=== PATIENT | male | born 1980 | race Caucasian/White ===

== ENCOUNTER 2017-02-06 10:21 | Emergency (ER) | payer OTHER ==
[~2017-02-06] VITALS: Ht 180.3 cm; Wt 58.1 kg
[~2017-02-06 10:21] MED LIST: CLONAZEPAM0.5 MG PO; FOLIC ACID1 MG PO; IMURAN50 MG PO; NORCO 5-325 TA1 EACH PO; PREDNISONE20 MG PO; SULFASALAZINE500 MG PO; ZOFRAN ODT4 MG PO; ZOFRAN ODT4 MG SL; ZOLOFT50 MG PO
[2017-02-06] MEDS ORDERED: REMERON30 MG PO (10:34)
[2017-02-06] MEDS ORDERED: PREDNISONE10 MG PO (10:35)
[2017-02-06] MEDS ORDERED: BENTYL10 MG PO (10:36)
[2017-02-06] MEDS ORDERED: PREDNISONE20 MG PO (12:09)
== END 2017-02-06 12:47 | disposition home or self-care (01) ==
LOC: ED 10:21
DX: K50.90 Crohn's disease, unspecified, without complications (principal); F41.9 Anxiety disorder, unspecified; F32.9 Major depressive disorder, single episode, unspecified; F17.200 Nicotine dependence, unspecified, uncomplicated; Z88.5 Allergy status to narcotic agent
CPT/HCPCS: 80053; 85025; 96374; 96375; 99283; J2405; J2930

== ENCOUNTER 2017-02-20 12:25 | Emergency (ER) | payer OTHER ==
[~2017-02-20] VITALS: Ht 180.3 cm; Wt 58.1 kg
[~2017-02-20 12:25] MED LIST changes: +BENTYL10 MG PO; +PREDNISONE10 MG PO; +REMERON30 MG PO
== END 2017-02-20 20:05 | disposition short-term general hospital (02) ==
LOC: ED 12:25
DX: K50.90 Crohn's disease, unspecified, without complications (principal); F32.9 Major depressive disorder, single episode, unspecified; F41.9 Anxiety disorder, unspecified; F17.200 Nicotine dependence, unspecified, uncomplicated; Z88.5 Allergy status to narcotic agent
CPT/HCPCS: 74177; 80053; 81001; 83690; 85025; 96361; 96374; 96375; 96376; 99285; J1170; J2405; J2920; J2930; J7030; Q9967

== ENCOUNTER 2017-03-14 10:43 | Emergency (ER) | payer OTHER ==
[~2017-03-14] VITALS: Ht 180.3 cm; Wt 63.5 kg
[2017-03-14] MEDS ORDERED: DICYCLOMINE HCL20 MG PO (10:58)
[2017-03-14] MEDS ORDERED: PREDNISONE10 MG PO (10:58)
[2017-03-14] MEDS ORDERED: FOLIC ACID1 MG PO (10:59)
[2017-03-14] MEDS ORDERED: NORCO 5-325 TA1 EACH PO (12:30)
== END 2017-03-14 12:40 | disposition home or self-care (01) ==
LOC: ED 10:43
DX: K50.90 Crohn's disease, unspecified, without complications (principal); F41.9 Anxiety disorder, unspecified; F32.9 Major depressive disorder, single episode, unspecified; F17.200 Nicotine dependence, unspecified, uncomplicated; Z88.5 Allergy status to narcotic agent; Z79.899 Other long term (current) drug therapy; Z90.49 Acquired absence of other specified parts of digestive tract; Z79.52 Long term (current) use of systemic steroids
CPT/HCPCS: 80053; 81001; 85025; 96361; 96374; 96375; 99283; J1170; J2060; J2405; J7030

== ENCOUNTER 2018-10-17 16:16 | Emergency (ER) | payer OTHER ==
[~2018-10-17] VITALS: Ht 180.3 cm; Wt 63.5 kg
--- OUTSIDE RECORDS SUMMARY | ~2018-10-17 | XMS | Clinical Summary ---
Demographics + + + | Address | [address] | | | [place] [address] | + + + | Home Phone | | + + + | Preferred Language | Unknown | + + + | Marital Status | S | + + + | Pentecostalism Affiliation | Unknown | + + + | Race | White | + + + | Ethnic Group | Not or | + + + Author + + + | Author | [facility] | + + + | Organization | [facility] | + + + | Address | [address] | | | [place] [address] | + + + | Phone | Unavailable | + + + Care Team Providers + + + + | Care Research Leader Name | Role | Phone | + + + + Unavailable | Unavailable | + + + + Conditions or Problems +---------+---------+---------+--------+---------+---------+---------+---------+---------+ | Problem | Problem | Onset | Status | Entry | Provide | Comment | Standar | Annotat | | Name | Code | Date | | Date | r | | d | e | | | | | | | | | Descrip | | | | | | | | | | tion | | +---------+---------+---------+--------+---------+---------+---------+---------+---------+ | ABDOMIN | [id number] | | Active | | Subhaji | | Abdomin | | | AL PAIN | 1 | /29 | | /29 | t | | al pain | | | | (SNOMED | | | | Mukherj | | | | | | CT) | | | | ee MD | | | | +---------+---------+---------+--------+---------+---------+---------+---------+---------+ | CROHN'S | [id number] | | Active | | Subhaji | | Crohn's | | | | 6 | /29 | | /29 | t | | | | | DISEASE | (SNOMED | | | | Mukherj | | disease | | | | CT) | | | | ee MD | | | | +---------+---------+---------+--------+---------+---------+---------+---------+---------+ Medications + + + + + + + + | Medication | Instructio | Start Date | Stop Date | Generic | NDC | Provider | | | ns | | | Name | | | + + + + + + + + | SUPREP | mix and | | | NA | [id number] | Subhajit | | BOWEL PREP | drink one | | | SULFATE-K | 1 | Keny | | KIT | bottle at | | | SULFATE-MG | | MD | | 17.5-3.13- | 5pm day | | | SULF | | | | 1.6 | before | | | | | | | GM/177ML | procedure. | | | | | | | SOLN | mix and | | | | | | | | drink 2nd | | | | | | | | bottle 4 | | | | | | | | hours | | | | | | | | before | | | | | | | | check in | | | | | | | | time | | | | | | + + + + + + + + | PREDNISONE | PDN taper: | | | PREDNISONE | [id number] | Subhajit | | 10 MG | [id number] | | | | 5 | Keny | | TABS | days; | | | | | MD | | | [id number] | | | | | | | | days; | | | | | | | | [id number] | | | | | | | | ; 20mg | | | | | | | | daily | | | | | | | | until seen | | | | | | | | at follow | | | | | | | | up | | | | | | + + + + + + + + | MIRALAX | 1 packet | | | POLYETHYLE | [id number] | Alice | | PACK | daily prn | | | NE GLYCOL | 5 | [place] | | | | | | 3350 | | | + + + + + + + + | PREDNISONE | 2 tablets | | | PREDNISONE | [id number] | Alice | | 20 MG | by mouth | | | | 5 | [place] | | TABS | daily | | | | | | + + + + + + + + | DICYCLOMIN | 2 tablets | | | DICYCLOMIN | [id number] | Alice | | E HCL 20 | 3 times a | | | E HCL | 1 | [place] | | MG TABS | day | | | | | | + + + + + + + + | HYDROXYZIN | one tablet | | | HYDROXYZIN | [id number] | Alice | | E PAMOATE | twice | | | E PAMOATE | 1 | [place] | | 50 MG CAPS | daily | | | | | | + + + + + + + + | SERTRALINE | 3 tablets | | | SERTRALINE | [id number] | Alice | | HCL 50 MG | daily | | | HCL | 0 | [place] | | TABS | | | | | | | + + + + + + + + | CIPROFLOXA | one tablet | | | CIPROFLOXA | [id number] | Alice | | AUNDREA HCL | po bid | | | AUNDREA HCL | 1 | [place] | | 500 MG | | | | | | | | TABS | | | | | | | + + + + + + + + | FLAGYL 500 | one tablet | | | METRONIDAZ | [id number] | Alice | | MG TABS | po tid | | | OLE | 1 | [place] | + + + + + + + + Medications Administered No information available. Allergies, Adverse Reactions, Alerts + + + + +--------+ + | Allergy Name | Reaction | Start Date | Severity | Status | Provider | | | Description | | | | | + + + + +--------+ + | DEMRALL | | | Critical | | Laice | | | | | | | [place] | + + + + +--------+ + | MORPHINE | | | Critical | | Alice | | | | | | | [place] | + + + + +--------+ + Results +------+------+-------+------+-------+------+ + | Date | Name | Value | Unit | Range | Flag | Descriptio | | | | | | | | n | +------+------+-------+------+-------+------+ + + + | Office Visit: GI consult | + + + + +----+---+---+---+ + | | CULT MRSA | No | | | | Culture, | | | | | | | | Methicilli | | | | | | | | n | | | | | | | | Resistant | | | | | | | | Staphyloco | | | | | | | | ccus | | | | | | | | aureus | + + +----+---+---+---+ + + + | Lab Report: Basic Metabolic Panel | + + + + +-------+ + +---+ + | | CALCIUM | 7.0 | mg/dL | 8.5-10.1 | L | calcium, | | | | | | | | serum | + + +-------+ + +---+ + | | GFRC | >60 | mL/min/1.7 | 60- | N | Glomerular | | | | | 3m2 | | | | | | | | | | | Filtration | | | | | | | | Rate | | | | | | | | Calculatio | | | | | | | | n | + + +-------+ + +---+ + | | BUN/CREAT | 9.5 % | | 12.0-20.0 | L | urea | | | | | | | | nitrogen/c | | | | | | | | reatinine | | | | | | | | ratio, | | | | | | | | serum | + + +-------+ + +---+ + | | CREATININE | 0.84 | mg/dL | 0.60-1.20 | N | creatinine | | | | | | | | , serum | + + +-------+ + +---+ + | | BUN | 8 | mg/dL | 8-24 | N | urea | | | | | | | | nitrogen, | | | | | | | | blood | + + +-------+ + +---+ + | | GLUCOSE | 87 | mg/dL | 70-99 | N | blood | | | SER | | | | | glucose | + + +-------+ + +---+ + | | ANION GAP | 9 | mmol/L | 6-16 | N | anion gap, | | | | | | | | serum | + + +-------+ + +---+ + | | CO2 | 22 | mmol/L | 21-32 | N | carbon | | | | | | | | dioxide, | | | | | | | | venous | | | | | | | | blood | + + +-------+ + +---+ + | | CHLORIDE | 114 | mmol/L | 98-108 | H | chloride, | | | | | | | | serum | + + +-------+ + +---+ + | | POTASSIUM | 3.5 | mmol/L | 3.5-5.5 | N | potassium, | | | | | | | | serum | + + +-------+ + +---+ + | | SODIUM | 145 | mmol/L | 136-145 | N | sodium, | | | | | | | | serum | + + +-------+ + +---+ + + + | Lab Report: Comprehensive Metabolic Panel | + + + + +--------+ + +---+ + | | SGPT (ALT) | 16 | U/L | 12-78 | N | alanine | | | | | | | | aminotrans | | | | | | | | ferase | | | | | | | | (SGPT), | | | | | | | | serum | + + +--------+ + +---+ + | | SGOT (AST) | 12 | U/L | 12-37 | N | aspartate | | | | | | | | aminotrans | | | | | | | | ferase | | | | | | | | (SGOT), | | | | | | | | serum | + + +--------+ + +---+ + | | ALK PHOS | 78 | U/L | 50-136 | N | alkaline | | | | | | | | phosphatas | | | | | | | | e, serum | + + +--------+ + +---+ + | | BILI TOTAL | 0.6 | mg/dL | 0.1-1.0 | N | bilirubin, | | | | | | | | serum, | | | | | | | | total | + + +--------+ + +---+ + | | A/G RATIO | 0.7 | | 0.8-1.8 | L | albumin/gl | | | | | | | | obulin | | | | | | | | ratio, | | | | | | | | serum | + + +--------+ + +---+ + | | GLOBULIN | 3.4 | g/dL | 2.2-4.0 | N | globulins, | | | TOT | | | | | serum, | | | | | | | | total | + + +--------+ + +---+ + | | ALBUMIN | 2.5 | g/dL | 3.4-5.0 | L | albumin, | | | | | | | | serum | + + +--------+ + +---+ + | | PROTEIN, | 5.9 | g/dL | 6.4-8.2 | L | protein, | | | TOT | | | | | total, | | | | | | | | serum | + + +--------+ + +---+ + | | CALCIUM | 7.5 | mg/dL | 8.5-10.1 | L | calcium, | | | | | | | | serum | + + +--------+ + +---+ + | | GFRC | >60 | mL/min/1.7 | 60- | N | Glomerular | | | | | 3m2 | | | | | | | | | | | Filtration | | | | | | | | Rate | | | | | | | | Calculatio | | | | | | | | n | + + +--------+ + +---+ + | | BUN/CREAT | 18.5 % | | 12.0-20.0 | N | urea | | | | | | | | nitrogen/c | | | | | | | | reatinine | | | | | | | | ratio, | | | | | | | | serum | + + +--------+ + +---+ + | | CREATININE | 0.70 | mg/dL | 0.60-1.20 | N | creatinine | | | | | | | | , serum | + + +--------+ + +---+ + | | BUN | 13 | mg/dL | 8-24 | N | urea | | | | | | | | nitrogen, | | | | | | | | blood | + + +--------+ + +---+ + | | GLUCOSE | 111 | mg/dL | 70-99 | H | blood | | | SER | | | | | glucose | + + +--------+ + +---+ + | | ANION GAP | 6 | mmol/L | 6-16 | N | anion gap, | | | | | | | | serum | + + +--------+ + +---+ + | | CO2 | 25 | mmol/L | 21-32 | N | carbon | | | | | | | | dioxide, | | | | | | | | venous | | | | | | | | blood | + + +--------+ + +---+ + | | CHLORIDE | 110 | mmol/L | 98-108 | H | chloride, | | | | | | | | serum | + + +--------+ + +---+ + | | POTASSIUM | 4.0 | mmol/L | 3.5-5.5 | N | potassium, | | | | | | | | serum | + + +--------+ + +---+ + | | SODIUM | 141 | mmol/L | 136-145 | N | sodium, | | | | | | | | serum | + + +--------+ + +---+ + + + | Lab Report: Lactate (Lactic Acid), Blood | + + + + +-----+--------+---------+---+ + | | LACTATE | 0.7 | mmol/L | 0.4-2.0 | N | lactate, | | | BLD | | | | | blood | + + +-----+--------+---------+---+ + + + | Lab Report: CBC without Diff (Hemogram) | + + + + +------+ + +---+ + | | NRBCS/100W | 0.0 | % | 0.0-0.2 | N | nucleated | | | BC | | | | | red blood | | | | | | | | cells as | | | | | | | | percent of | | | | | | | | blood | | | | | | | | leukocytes | + + +------+ + +---+ + | | MPV | 8.6 | fL | 9.1-12.4 | L | mean | | | | | | | | platelet | | | | | | | | volume | + + +------+ + +---+ + | | PLATELETS | 230 | 10*3/mm3 | 150-400 | N | platelet | | | | | | | | count | + + +------+ + +---+ + | | RDW | 12.6 | % | 11.7-14.2 | N | red blood | | | | | | | | cell | | | | | | | | distributi | | | | | | | | on width | + + +------+ + +---+ + | | RDW-SD | 40.9 | fL | 35.1-46.3 | N | red blood | | | | | | | | cell | | | | | | | | distributi | | | | | | | | on width, | | | | | | | | size | | | | | | | | density | + + +------+ + +---+ + | | MCHC RBC | 33.7 | g/dL | 31.5-36.5 | N | mean | | | | | | | | corpuscula | | | | | | | | r | | | | | | | | hemoglobin | | | | | | | | | | | | | | | | concentrat | | | | | | | | ion, RBC | + + +------+ + +---+ + | | MCH | 29.7 | pg | 26.0-34.0 | N | mean | | | | | | | | corpuscula | | | | | | | | r | | | | | | | | hemoglobin | | | | | | | | , RBC | + + +------+ + +---+ + | | MCV | 88 | fL | 80-100 | N | mean | | | | | | | | corpuscula | | | | | | | | r volume, | | | | | | | | RBC | + + +------+ + +---+ + | | HCT | 37.7 | % | 37.0-53.0 | N | hematocrit | | | | | | | | , blood | + + +------+ + +---+ + | | HGB | 12.7 | g/dL | 13.5-17.5 | L | hemoglobin | | | | | | | | , blood | + + +------+ + +---+ + | | RBC | 4.27 | 10*6/mm3 | 4.30-5.90 | L | erythrocyt | | | | | | | | e (RBC) | | | | | | | | count | + + +------+ + +---+ + | | WBC | 6.30 | 10*3/mm3 | 4.00-11.30 | N | leukocyte | | | | | | | | count, | | | | | | | | blood | + + +------+ + +---+ + Plan of Care + + + + | Type | Date | Detail | + + + + | Appointment | 11:30 AM | Jayson Bustillo MD, [address] | | | | [address] [facility] | | | | [address], [place], [address], | | | | | + + + + | Pending order | | Hepatitis C Antibody Total | + + + + | Pending order | | Calprotectin, Fecal | + + + + | Pending order | | HAV Ab, IgM | + + + + | Pending order | | Quantiferon TB Gold In-Tube | + + + + | Pending order | | Hepatitis B Surface Antigen | | | | (HBSAG) | + + + + | Pending order | | Hepatitis A - total | + + + + | Pending order | | MR Abdomen-WWO Con | + + + + | Pending order | | CBC w/ Auto Diff | + + + + | Pending order | | Hepatitis B Surface | | | | Antibody | + + + + | Pending order | | Hepatitis B core - Igm | | | | antibody | + + + + | Pending order | | HIV 1/2 Ab RFLX to Suppl | | | | Assay | + + + + | Pending order | | Comprehensive Metabolic | | | | Panel | + + + + | Pending order | | MR Moise Con | + + + + | Pending order | | HBc Ab, Total | + + + + | Pending order | | Vitamin D, 25-OH by | | | | LC-MS/MS | + + + + | Patient education | | CROHN%20DISEASE | + + + + Procedures No information available. Vital Signs + + +-------+---------+ + | Date | Name | Value | Unit | Description | + + +-------+---------+ + | | BMI (Body Mass | 21.95 | kg/m2 | Body Mass Index | | | Index) | | | [Ratio] | + + +-------+---------+ + | | BP Diastolic | 60 | mm[Hg] | blood pressure, | | | | | | diastolic | + + +-------+---------+ + | | BP Diastolic | 60 | mm[Hg] | blood pressure, | | | | | | diastolic, | | | | | | second | | | | | | observation | + + +-------+---------+ + | | BP Systolic | 128 | mm[Hg] | blood pressure, | | | | | | systolic, | | | | | | second | | | | | | observation | + + +-------+---------+ + | | BP Systolic | 128 | mm[Hg] | blood pressure, | | | | | | systolic | + + +-------+---------+ + | | Heart Rate | 80 | /min | pulse rate E&M | + + +-------+---------+ + | | Height | 70 | [in_us] | height E&M | + + +-------+---------+ + | | Weight Measured | 152.4 | [lb_av] | weight E&M | + + +-------+---------+ + Social History + + + +-------+ + | Concept | Observation | Observation | Units | Start Date | | Description | Name | Value | | | + + + +-------+ + | Alcohol use | ETOH USE | never | | | + + + +-------+ + | Details of drug | DRUG USE | none | | | | misuse | | | | | | behavior | | | | | + + + +-------+ + | Never smoker | SMOK STATUS | Never smoker | | | + + + +-------+ + | Health-related | HIV RSK EVAL | No | | | | behavior | | | | | + + + +-------+ +"
--- OUTSIDE RECORDS SUMMARY | ~2018-10-17 | XMS | Clinical Summary ---
Demographics + + + | Address | [address] | | | [place] [address] | + + + | Home Phone | | + + + | Preferred Language | Unknown | + + + | Marital Status | S | + + + | Gnosticist Affiliation | Unknown | + + + | Race | White | + + + | Ethnic Group | Not or | + + + Author + + + | Author | [facility] | + + + | Organization | [facility] | + + + | Address | [address] | | | [place] [address] | + + + | Phone | Unavailable | + + + Care Team Providers + + + + | Care Baccarat Dealer Name | Role | Phone | + [...] tion | | +---------+---------+---------+--------+---------+---------+---------+---------+---------+ | ABDOMIN | [id number] | | Active | | Subhaji | | Abdomin | | | AL PAIN | 1 | /29 | | /29 | t | | al pain | | | | (SNOMED | | | | Mukherj | | | | | | CT) | | | | ee MD | | | | +---------+---------+---------+--------+---------+---------+---------+---------+---------+ | CROHN'S | [id number] | | Active | | Subhaji | [...] mix and | | | NA | [id number] | Subhajit | | BOWEL PREP | [...] PDN taper: | | | PREDNISONE | [id number] | Subhajit | | 10 MG | [id number] | | | | 5 | Keny | | TABS | days; | | | | | MD | | | [id number] | | | | | | | | days; | | | | | | | | [id number] | | | | | | | [...] 1 packet | | | POLYETHYLE | [id number] | Alice | | PACK | daily prn | | | NE GLYCOL | 5 | [place] | | | | | | 3350 | | | + + + + + + + + | PREDNISONE | 2 tablets | | | PREDNISONE | [id number] | Alice | | 20 MG | by mouth | | | | 5 | [place] | | TABS | daily | | | | | | + + + + + + + + | DICYCLOMIN | 2 tablets | | | DICYCLOMIN | [id number] | Alice | | E HCL 20 | 3 times a | | | E HCL | 1 | [place] | | MG TABS | day | | | | | | + + + + + + + + | HYDROXYZIN | one tablet | | | HYDROXYZIN | [id number] | Alice | | E PAMOATE | twice | | | E PAMOATE | 1 | [place] | | 50 MG CAPS | daily | | | | | | + + + + + + + + | SERTRALINE | 3 tablets | | | SERTRALINE | [id number] | Alice | | HCL 50 MG | daily | | | HCL | 0 | [place] | | TABS | | | | | | | + + + + + + + + | CIPROFLOXA | one tablet | | | CIPROFLOXA | [id number] | Alice | | AUNDREA HCL | po bid | | | AUNDREA HCL | 1 | [place] | | 500 MG | | | | | | | | TABS | | | | | | | + + + + + + + + | FLAGYL 500 | one tablet | | | METRONIDAZ | [id number] | Alice | | MG TABS | [...] DEMRALL | | | Critical | | Alice [...] [address] | | | | [address] [facility] | | | | [address], [place], [address], | | | | | + + [...] + | Pending order | | MR [place] | + + + + | Pending order | | HBc Ab, Total | + + + + | Pending order | | Vitamin D, 25-OH by | | | | LC-MS/MS | + + + + | Pending order | | MX Dexa Scan-Body | + + + + | Patient [...]
--- OUTSIDE RECORDS SUMMARY | ~2018-10-17 | XMS | Clinical Summary ---
Demographics + + + | Address | [address] | | | [place] [address] | + + + | Home Phone | | + + + | Preferred Language | Unknown | + + + | Marital Status | Single | + + + | Jewish Affiliation | CHR | + + + [...] Team Providers + +------+ + | Care Peoplesoft Hr Developer Name | Role | Phone | + +------+ + | Theresa High NP | PP | | + +------+ + Source Comments DION is fully live on both [facility] and [facility] In[facility] Allergies + + + + + + [...] (Flu) | | | | | vaccination (#1) | 8 | | | + + + + + Results Not on filefrom Last 3 Months Insurance + +--------+ +--------+-------+---------+ | Payer | Benefi | Subscriber | Type | Phone | Address | | | t Plan | ID | | | | | | / | | | | | | | Group | | | | | + +--------+ +--------+-------+---------+ | [employer]ICA[employer] | GLUE MIXER | xxxxxxxx | Medica | | | [...] | Self [birth year] Home: | [address] | | | al/Fam | | 1980 | [phone] | [place] [address] | | | tory | | | [phone] | | + +--------+ +--------+ + +
--- OUTSIDE RECORDS SUMMARY | ~2018-10-17 | XMS ---
Demographics + + + | Address | [address] | | | [place] [address] | + + + | Home Phone | | + + + | Preferred Language | Unknown | + + + | Marital Status | S | + + + | Buddhism Affiliation | Unknown | + + + | Race | White | + + + | Ethnic Group | Not or | + + + Author + + + | Author | [facility] | + + + | Organization | [facility] | + + + | Address | [address] | | | [place] [address] | + + + | Phone | Unavailable | + + + Care Team Providers + + + + | Care Card Runner Name | Role | Phone | + + + + Unavailable | Unavailable | + + + + Reason for Visit + + + | Reason For Visit Description | Start Date | + + + | General Notes | | + + + | | Gastroenterology Initial Visit Note | | | Chief Complaint: Crohn's referring: | | | Grzegorz Current Allergies: Done | | | HISTORY OF PRESENT ILLNESS: Mr Mayen | | | Fortunato is a 38 y o male | | | currently incarcerated for sex offence | | | with past medical history of fistulizing | | | Crohn's disease with prior abdominal | | | surgeries and small bowel resections came | | | to the clinic to establish | | | Gastroenterology care. Patient was | | | admitted to hospital in 07/2017 with | | | abdominal pain and CT concern for fistula. | | | Patient had surgery evaluation and no | | | surgical intervention was required. | | | Gastroenterology was on-call and consult | | | was placed but since no one called in | | | time, pt didn't have Gastroenterology | | | consult. He was subsequently discharged on | | | po prednisone of 40 mg. - Pt reports | | | that he has failed humira before since it | | | didn't work - He also failed remicade as | | | it caused bone marrow suppression - he | | | was on imuran, sulfasalazine, asacol | | | without much benefit - he was last seen | | | GI in [facility] and recommended | | | remicade and pt refused for past 6 months | | | he has been on 40 mg of prednisone. 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 CV: Denies | | | chest pain, palpitations RESPIRATORY: | | | Denies cough or shortness of breath. | | | GASTROINTESTINAL: Denies abdominal pain, | | | denies diarrhea, denies constipation, | | | denies nausea, denies vomiting, denies | | | rectal bleeding URINARY: Denies dysuria, | | | hematuria MSK: denies back pain, denies | | | stiffness ENDOCRINE: Denies heat or cold | | | intolerance HEMATOLOGIC: denies any | | | fatigue, no pallor NEUROLOGIC: Denies | | | fainting, seizures PSYCHIATRIC: Denies | | | depressed mood Medical History crohn | | | disease Surgical History 2 bowel | | | reconstruction 1997, 2007 Family History | | | no family hx of colon cancer Social | | | History single Risk Factors | | | Tobacco Use: Never smoker Alcohol | | | Use:never Drug Use: none Other Risk | | | Factors HX of MRSA: No HIV high risk | | | behavior: No Nurse Intake Height: | | | 70in. Weight: 152.4 lbs. Pulse: 80 | | | BMI: 21.95 Pulse Oximetry: O2 sat. at | | | rest is 98% BP #1: 128/60 Vitals | | | entered by: Alice Monterroso on July | | | 2018 9:32 AM Physical | | | Examination: Blood Pressure: 128/60. | | | Height: 70 inches. Weight: 152.4 pounds. | | | BMI: 21.95 Pulse rate: 80. | | | Constitutional:No acute distress. Normal | | | general appearance. hand-cuffed Eyes: No | | | pallor, no icterus, no redness or | | | discharge ENMT: Oral mucosa moist, no | | | oral ulcers or thrush Cardiovascular: | | | Heart sounds S1 and S2. No other heart | | | sounds or murmur. Carotid bruits not | | | present. Respiratory: Clear to | | | auscultation bilaterally. No wheeze, rubs | | | or rhonchi GI: Soft, nontender, bowel | | | sounds present, no appreciable | | | organomegaly, mid abdominal surgical scar | | | lucia Skin:No rash Neurologic: Nonfocal | | | and grossly intact Psychiatric: Patient | | | alert and oriented to time, place, and | | | person. Hem/Lymph/Immuno: No | | | lymphadenopathy Laboratory: HGB: | | | 12.7 g/dL 08/08/2018 Low HCT: 37.7 % | | | 08/08/2018 Normal MCV: 88 fL | | | 08/08/2018 Normal WBC: 6.30 10*3/mm3 | | | 08/08/2018 Normal Plt: 230 10*3/mm3 | | | 08/08/2018 Normal Albumin: 2.5 g/dL | | | 08/08/2018 Low AST: 12 U/L 08/08/2018 | | | Normal ALT: 16 U/L 08/08/2018 Normal | | | Alk Phos: 78 U/L 08/08/2018 Normal | | | Tot. Bili: 0.6 mg/dL 08/08/2018 Normal | | | Cr: 0.84 mg/dL 08/09/2018 Normal | | | Assessment: 38 y o male | | | currently incarcerated for sex offence | | | with past medical history of fistulizing | | | Crohn's disease with prior abdominal | | | surgeries and small bowel resections came | | | to the clinic to establish | | | Gastroenterology care. Plan: 1. | | | Crohn's disease: - fistulizing, small | | | bowel involvement - failed 2 anti-TNFs | | | for primarey non-responder and bone marrow | | | suppressions - on prednisone 40 gm for | | | past 6 months - asymptomatic now, will | | | taper by 5 mg every 2 weeks and then f/u | | | in clinic while he is on 20 mg daily - | | | labs - quantiferon, hepatitis serologies | | | - needs all vaccinations to uptodate - | | | needs strict PCP f/u - needs colonoscopy | | | - order MR enterography - consider | | | ustekinumab - I discussed with him that | | | in future he might need surgeries as well | | | - no smoking - no NSAIDs ASA:2 | | | Mallampati:II Procedure scheduled: | | | colonoscopy, no MAC Risks and benefits | | | of the procedure and sedation discussed | | | with patient which includes abdominal | | | pain, discomfort, bleeding, nausea, | | | vomiting, tear in the wall of the | | | intestine, infection, missed | | | lesions/polyps/cancer, incomplete | | | procedure, anesthesia complications | | | including cardiopulmonary complications | | | and even . Sometimes a complication | | | may require additional treatment such as | | | surgery, hospitalization, repeat endoscopy | | | and/or blood transfusion. Patient | | | verbalized understanding and agreed to | | | proceed with the procedure indicated. | | | Patient is in agreement with the plan | | | above. Patient was also given contact | | | informations of our office to reach us | | | when needed. Follow-up in 2 months | | | .......................................... | | | .. Meaningful Use Med List | | | (Reconciled): FLAGYL 500 MG ORAL TABLET | | | (METRONIDAZOLE) one tablet po tid; Route: | | | ORAL CIPROFLOXACIN HCL 500 MG ORAL | | | TABLET (CIPROFLOXACIN HCL) one tablet po | | | bid; Route: ORAL SERTRALINE HCL 50 MG | | | ORAL TABLET (SERTRALINE HCL) 3 tablets | | | daily; Route: ORAL HYDROXYZINE PAMOATE 50 | | | MG ORAL CAPSULE (HYDROXYZINE PAMOATE) one | | | tablet twice daily; Route: ORAL | | | DICYCLOMINE HCL 20 MG ORAL TABLET | | | (DICYCLOMINE HCL) 2 tablets 3 times a day; | | | Route: ORAL PREDNISONE 20 MG ORAL TABLET | | | (PREDNISONE) 2 tablets by mouth daily; | | | Route: ORAL MIRALAX ORAL PACKET | | | (POLYETHYLENE GLYCOL 3350) 1 packet daily | | | prn; Route: ORAL PREDNISONE 10 MG ORAL | | | TABLET (PREDNISONE) PDN taper: [id number] | | | days; [id number] days; [id number]; 20mg daily | | | until seen at follow up; Route: ORAL | | | SUPREP BOWEL PREP KIT 17.5-3.13-1.6 | | | GM/177ML ORAL SOLUTION (NA SULFATE-K | | | SULFATE-MG SULF) mix and drink one bottle | | | at 5pm day before procedure. mix and drink | | | 2nd bottle 4 hours before check in time; | | | Route: ORAL Historical | | | Immunizations entered during this visit | | | FLU-UNSPECIFIED Series: Unknown Date | | | Given (Approx.): 05/09/2018 This | | | note was transcribed using [employer] Speech | | | Recognition software. As a result, there | | | may be grammatical and spelling errors | | | that are unintended. Every attempt is made | | | to have correct dictation. If there are | | | any questions or major errors, please | | | contact our office. Process Orders | | | Check Orders Results: Lab - Rad: ABN | | | not required for this insurance. Tests | | | Sent for requisitioning (August 21, 2018 | | | 10:15 AM): 08/21/2018: Lab - Rad -- | | | CBC w/ Auto Diff [CBC AUTO [id number]] (signed) | | | 08/21/2018: Lab - Rad -- | | | Comprehensive Metabolic Panel [CHEM PROF] | | | (signed) 08/21/2018: Lab - Rad -- HAV | | | Ab, IgM [HEP A IGM [id number]] (signed) | | | 08/21/2018: Lab - Rad -- Hepatitis A - | | | total [HEP A TOT 02112] (signed) | | | 08/21/2018: Lab - Rad -- Hepatitis B core | | | - Igm antibody [HEP COR M 11994] (signed) | | | 08/21/2018: Lab - Rad -- HBc Ab, | | | Total [HEP B CORE 26988] (signed) | | | 08/21/2018: Lab - Rad -- Hepatitis B | | | Surface Antibody [HEP B IMMU 30771] | | | (signed) 08/21/2018: Lab - Rad -- | | | Hepatitis B Surface Antigen (HBSAG) [HEP B | | | S AG 06691] (signed) 08/21/2018: Lab | | | - Rad -- Vitamin D, 25-OH by LC-MS/MS | | | [VIT D2+D3 03889] (signed) | | | 08/21/2018: Lab - Rad -- Hepatitis C | | | Antibody Total [HEP C AB 25511] (signed) | | | 08/21/2018: Lab - Rad -- Quantiferon | | | TB Gold In-Tube [QUANT TB 03337] (signed) | | | 08/21/2018: Lab - Rad -- MR | | | Abdomen-WWO Con [[id number]] (signed) | | | 08/21/2018: Lab - Rad -- MR Pelvis-WWO Con | | | [[id number]] (signed) 08/21/2018: Lab - | | | Rad -- Calprotectin, Fecal [STL CALPRO | | | [id number]] (signed) 08/21/2018: Lab - Rad | | | -- HIV 1/2 Ab RFLX to Suppl Assay [HIV AB | | | REF 85967] (signed) | + + + Assessments No information available. Chief Complaint No information available. History of Past Illness crohn disease |"
--- OUTSIDE RECORDS SUMMARY | ~2018-10-17 | XMS | Continuity of Care Document ---
Demographics + + + | Address | [address] | | | [place] [address] | + + + | Home Phone | | + + + | Preferred Language | Unknown | + + + | Marital Status | Unknown | + + + | Alevism Affiliation | Unknown | + + + | Race | Unknown | + + + | Ethnic Group | Unknown | + + + Author + + + | Author | [facility] | + + + | Organization | [facility] | + + + | Address | [address] [facility] | | | [place] [address] | + + + | Phone | | + + + Support + + + + + | Name | Relationship | Address | Phone | + + + + + | Brent Calle MD | Caregiver | [facility] | | | | | [place] [address] | | + + + + + | Ryan Man | Caregiver | [facility] | | | MD | | [facility] | | | | | , [place] [address] | | + + + + + | Ryan Man | Caregiver | [facility] | | | MD | | [facility] | | | | | , [place] [address] | | + + + + + | Yan Tovar DO | Caregiver | [address] | | | | | [facility], [place] | | | | | [address] | | + + + + + | Jayson Bustillo | Caregiver | [facility] | | | MD | | [facility] | | | | | [place] [address] | | + + + + + | BRITANY OCHOA | Caregiver | [address] | | | | | [facility], [place] | | | | | [address] | | + + + + + | TEMITOPE PRESTON | Next Of Kin | [address] [facility] | | | | | [place] [address] | | + + + + + Care Team Providers + + + + | Care Coding Analyst Name | Role | Phone | + + + + | BRITANY OCHOA PCP | Unavailable | | + + + + Insurance Providers + + + + + | Payer Name | Policy Number | Subscriber Name | Relationship | + + + + + | [employer] | [id number] | JASON PRESTON | SELF | + + + + + | BASIC DMAP (STATE | [id number] | JASON PRESTON | SELF | | MEDICAID) | | | | + + + + + Advance Directives + + + + | Directive | Response | Recorded Date/Time | + + + + | Code Status | FULL CODE | 08/08/18 0:09am | + + + + | Status of Advance | Doesn't Have One | 08/08/18 2:54am | | Directive/ | | | + + + + | Information obtained from | Y | 08/08/18 2:54am | | Patient? | | | + + + + | Heddler? | N | 08/08/18 2:54am | + + + + | Directives? | N | 08/08/18 2:54am | + + + + Chief Complaint and Reason for Visit + + + | Reason for Visit | EXACERBATION OF CROHNS DISEASE | + + + Problems Active Medical Problems + + + +--------+ | Problem | Onset Date | Recorded Date | Status | + + + +--------+ | Exacerbation of | Unknown | 08/08/18 | Active | | Crohn's disease | | | | + + + +--------+ | Partial small bowel | Unknown | 08/09/18 | Active | | obstruction | | | | + + + +--------+ | Sepsis | Unknown | 08/09/18 | Active | + + + +--------+ | Leucocytosis | Unknown | 08/09/18 | Active | + + + +--------+ Medications Current Home Medications + +------+-------+-------+ + + +--------+ | Medicati | Dose | Units | Route | Directio | Days/Qty | Instruct | Start | | on | | | | ns | | ions | Date | + +------+-------+-------+ + + +--------+ | Ciproflo | 500 | MG | ORAL | Twice | | TAKE | | | xacin | | | | Each Day | | UNTIL | | | (Cipro) | | | | | | GONE, | | | 500 MG | | | | | | TAKE | | | TAB | | | | | | WITH | | | | | | | | | FOOD | | + +------+-------+-------+ + + +--------+ | Dicyclom | 40 | MG | ORAL | Three | | | | | ine Hcl | | | | Times a | | | | | 20 MG | | | | Day | | | | | TABLET | | | | | | | | + +------+-------+-------+ + + +--------+ | Hydroxyz | 50 | MG | ORAL | Twice | | | | | ine | | | | Each Day | | | | | Pamoate | | | | | | | | | (Vistari | | | | | | | | | l) 50 MG | | | | | | | | | CAP | | | | | | | | + +------+-------+-------+ + + +--------+ | Metronid | 500 | MG | ORAL | Three | | TAKE | | | azole | | | | Times a | | UNTIL | | | (Flagyl) | | | | Day | | GONE, | | | 500 MG | | | | | | TAKE | | | TAB | | | | | | WITH | | | | | | | | | FOOD | | + +------+-------+-------+ + + +--------+ | Polyethy | 1 | PKT | ORAL | Daily as | | | | | sergei | | | | needed | | | | | Glycol | | | | for | | | | | 3350 | | | | CONSTIPA | | | | | (Miralax | | | | TION | | | | | 17 gm) | | | | | | | | | 1 PKT | | | | | | | | | PACKET | | | | | | | | + +------+-------+-------+ + + +--------+ | Predniso | 40 | MG | ORAL | Daily | | | | | ne 20 MG | | | | | | | | | TAB | | | | | | | | + +------+-------+-------+ + + +--------+ | Sertrali | 150 | MG | ORAL | Daily | | | | | ne Hcl | | | | | | | | | (Zoloft) | | | | | | | | | 100 MG | | | | | | | | | TAB | | | | | | | | + +------+-------+-------+ + + +--------+ Social History + + + + | Problem | Response | Recorded Date | + + + + | MENTAL HEALTH PROBLEMS/ | Yes | 08/08/18 | + + + + + + + + + | Query | Response | Start Date | Stop Date | + + + + + | Smoking status/ | Former Smoker | | | + + + + + Hospital Discharge Instructions ===== DISCHARGE PLAN ===== Discharge Date: 08/10/18 Discharged to/ Home Transportation Type/ Automobile/Taxi Call Your Doctor For/ Any Problems or Concerns Worsening Symptoms ===== DIET AND INSTRUCTIONS ===== ===== ACTIVITY ===== ===== WOUND CARE AND TREATMENT ===== Treatments: CONTINUE THE CURRENT MEDICATION REGIMEN PRESCRIBED. ===== PROVIDER FOLLOW-UP APPOINTMENTS ===== Comment: PCP IN IN 2 WEEKS ===== ADDITIONAL FOLLOW-UP ===== Patient Specific Education and D/C Instructions Provided? Y Is patient being discharged on WARFARIN? N Primary or Secondary Diagnosis of CHF? N History of New Onset Stroke Patient? N Stroke Instructions include: ===== VACCINES ===== ===== PRESCRIPTIONS ===== Written prescription provided to patient? Y Valuables Returned/ Y Summary of Care printed/downloaded for patient? N Discard old medication lists at home and update any records. ==== OTHER INSTRUCTIONS ==== Other Discharge Instructions: FOLLOW UP WITH PERFORMANCE REPORTER IN 2 WEEKS CONTINUE THE ANTIBIOTICS FOR 2 WEEKS CONTINUE PREDNISONE 40 MG DAILY FOR A MONTH UNTIL TAPERED DOWN BY GI DOCTOR. RETURN TO ER IF SYMPTOMS WORSEN OR RECUR. From your Provider ==== EQUIPMENT ==== Final Discharge Plan: [employer]ICE OFFICERS ===== DISCHARGE CARE PLAN ===== Problem: CROHN'S Goal: RETURN TO BASELINE Instructions: TAKE MEDS ORDERED, FOLLOW UP WITH PHYSICIANS PRESCRIBED + (/;Nurse/Nurse) Family/Guardian notified of DC date/time/ Y Plan of Care + + + | Discharge Date | 08/10/18 | + + + | Disposition | HOME | + + + | Prescriptions | See Medications Section | + + + | Referrals | NO PCP (FAMILY PRACTICE) - Within two | | | weeksReason(s) for | | | Referral:Notes:ESTABLISH PCP AND FOLLOW UP | | | IN NEXT TWO WEEKSGI (GASTROENTEROLOGY) - | | | Appt-Next Available DateReason(s) for | | | Referral:Notes:FOLLOW UP WITH GI DOC | | | ESTABLISHED WITH FACILITY | | |GI (GASTROENTEROLOGY) - Appt-Next Available Date | | | | | |Reason(s) for Referral: | | |Notes: | | |FOLLOW UP WITH GI DOC ESTABLISHED WITH | | |FACILITY | + + + | Care Plan and Goals | See Discharge Instructions section | + + + Functional Status No functional status results. Allergies, Adverse Reactions, Alerts + +---------+ + +--------+ + | Allergen | Type | Severity | Reaction | Status | Last Updated | + +---------+ + +--------+ + | morphine | Allergy | Unknown | | Active | 08/07/18 | + +---------+ + +--------+ + | meperidine | Allergy | Unknown | | Active | 08/07/18 | + +---------+ + +--------+ + Immunizations + + + + | Name | Date Given | Type | + + + + | Influenza, Injectable, | | Administered | | Quadrivalent, Preservative | | | + + + + Vital Signs + + + + | Vital Reading | Collection Date/Time | Result | + + + + | Blood Pressure | 08/10/18 7:22am | 101/71 | + + + + | Blood Pressure Source | 08/10/18 7:22am | Left Arm | + + + + | Temperature | 08/10/18 7:22am | 97.7 F | + + + + | Temperature Source | 08/10/18 7:22am | Temporal | + + + + | Respiratory Rate | 08/10/18 7:22am | 16 | + + + + | Pulse Rate | 08/10/18 7:22am | 94 | + + + + | Pulse Location | 08/10/18 4:39am | SpO2 | + + + + | Bedside Pulse Oximetry | 08/10/18 7:22am | 98 | + + + + | Height | 19 5:29am | 6 ft 0.01 in | + + + + | Height | 1819 5:29am | 182.9 cm | + + + + | Weight | 19 5:29am | 153 lb | + + + + | Weight | 08/10/18 5:29am | 69.5 kg | + + + + | Body Mass Index | 08/10/18 5:29am | 20.8 kg/m2 | + + + + Results Laboratory Results + + + +-------+ + + + + | Test | Result | Units | Flags | Referenc | Collecti | Result | Comments | | Name | | | | e | on | Date/Sigifredo | | | | | | | | Date/Sigifredo | e | | | | | | | | e | | | + + + +-------+ + + + + | Sodium | 145 | mmol/L | | 136-145 | 08/09/18 | 08/09/18 | | | Level | | | | | 4:44am | 5:55am | | + + + +-------+ + + + + | Potassiu | 3.5 | mmol/L | | 3.5-5.5 | 08/09/18 | 08/09/18 | | | m Level | | | | | 4:44am | 5:55am | | + + + +-------+ + + + + | Chloride | 114 | mmol/L | H | 98-108 | 08/09/18 | 08/09/18 | | | Level | | | | | 4:44am | 5:55am | | + + + +-------+ + + + + | Carbon | 22 | mmol/L | | 21-32 | 08/09/18 | 08/09/18 | | | Dioxide | | | | | 4:44am | 5:55am | | | Level | | | | | | | | + + + +-------+ + + + + | Anion | 9 | mmol/L | | 6-16 | 08/09/18 | 08/09/18 | | | Gap | | | | | 4:44am | 5:55am | | + + + +-------+ + + + + | Glucose | 87 | mg/dL | | 70-99 | 08/09/18 | 08/09/18 | | | Level | | | | | 4:44am | 5:55am | | + + + +-------+ + + + + | Blood | 8 | mg/dL | | 8-24 | 08/09/18 | 08/09/18 | | | Urea | | | | | 4:44am | 5:55am | | | Nitrogen | | | | | | | | + + + +-------+ + + + + | Creatini | 0.84 | mg/dL | | 0.60-1.2 | 08/09/18 | 08/09/18 | | | ne | | | | 0 | 4:44am | 5:55am | | + + + +-------+ + + + + | BUN/Crea | 9.5 | % | L | 12.0-20. | 08/09/18 | 08/09/18 | | | tinine | | | | 0 | 4:44am | 5:55am | | | Ratio | | | | | | | | + + + +-------+ + + + + | Glomerul | >60 | | | 60- | 08/09/18 | 08/09/18 | Non-Afri | | ar | | | | | 4:44am | 5:55am | can | | Filtrati | | | | | | | [place] | | on Rate | | | | | | | GFR | | Calc | | | | | | | CalcFor | | | | | | | | | | | | | | | | | | [place] | | | | | | | | | s, | | | | | | | | | multiply | | | | | | | | | the | | | | | | | | | calculat | | | | | | | | | ed GFR | | | | | | | | | by | | | | | | | | | 1.21Refe | | | | | | | | | rence | | | | | | | | | Range: | | | | | | | | | Above 60 | | | | | | | | | | | | | | | | | | mL/min/1 | | | | | | | | | .73m^2 | + + + +-------+ + + + + | Calcium | 7.0 | mg/dL | L | 8.5-10.1 | 08/09/18 | 08/09/18 | | | Level | | | | | 4:44am | 5:55am | | + + + +-------+ + + + + | Campylob | Not | | | NOT | 08/08/18 | 08/08/18 | | | acter | Detected | | | DETECT | 8:29pm | 10:14pm | | | (PCR)(LA | | | | | | | | | B) | | | | | | | | + + + +-------+ + + + + | Clostrid | Not | | | NOT | 08/08/18 | 08/08/18 | | | ium | Detected | | | DETECT | 8:29pm | 10:14pm | | | difficil | | | | | | | | | e | | | | | | | | | (PCR)(LA | | | | | | | | | B) | | | | | | | | + + + +-------+ + + + + | Stool | Not | | | NOT | 08/08/18 | 08/08/18 | | | Plesiomo | Detected | | | DETECT | 8:29pm | 10:14pm | | | ousmane | | | | | | | | | shigello | | | | | | | | | ides PCR | | | | | | | | + + + +-------+ + + + + | Stool | Not | | | NOT | 08/08/18 | 08/08/18 | | | Salmonel | Detected | | | DETECT | 8:29pm | 10:14pm | | | la PCR | | | | | | | | + + + +-------+ + + + + | Stool | Not | | | NOT | 08/08/18 | 08/08/18 | | | Yersinia | Detected | | | DETECT | 8:29pm | 10:14pm | | | | | | | | | | | | enteroco | | | | | | | | | litica | | | | | | | | | (PCR) | | | | | | | | + + + +-------+ + + + + | Vibrio | Not | | | NOT | 08/08/18 | 08/08/18 | | | species | Detected | | | DETECT | 8:29pm | 10:14pm | | | DNA/RNA | | | | | | | | | (PCR) | | | | | | | | + + + +-------+ + + + + | Stool | Not | | | NOT | 08/08/18 | 08/08/18 | | | Vibrio | Detected | | | DETECT | 8:29pm | 10:14pm | | | cholerae | | | | | | | | | (PCR) | | | | | | | | + + + +-------+ + + + + | Stool | Not | | | NOT | 08/08/18 | 08/08/18 | | | Enteroag | Detected | | | DETECT | 8:29pm | 10:14pm | | | gregativ | | | | | | | | | e E. | | | | | | | | | coli PCR | | | | | | | | + + + +-------+ + + + + | Stool | Not | | | NOT | 08/08/18 | 08/08/18 | | | Enteroto | Detected | | | DETECT | 8:29pm | 10:14pm | | | xigenic | | | | | | | | | Ecoli | | | | | | | | | PCR | | | | | | | | + + + +-------+ + + + + | Stool | Not | | | NOT | 08/08/18 | 08/08/18 | | | Enteropa | Detected | | | DETECT | 8:29pm | 10:14pm | | | thogenic | | | | | | | | | E. coli | | | | | | | | | (PCR | | | | | | | | + + + +-------+ + + + + | Stool E. | Not | | | NOT | 08/08/18 | 08/08/18 | | | coli | Detected | | | DETECT | 8:29pm | 10:14pm | | | Shiga | | | | | | | | | Toxins | | | | | | | | | (PCR) | | | | | | | | + + + +-------+ + + + + | Stool E | Not | | | NOT | 08/08/18 | 08/08/18 | | | coli | Detected | | | DETECT | 8:29pm | 10:14pm | | | O157 PCR | | | | | | | | + + + +-------+ + + + + | Stool | Not | | | NOT | 08/08/18 | 08/08/18 | | | Shigella | Detected | | | DETECT | 8:29pm | 10:14pm | | | /EIEC | | | | | | | | | (PCR) | | | | | | | | + + + +-------+ + + + + | Stool | Not | | | NOT | 08/08/18 | 08/08/18 | | | Cryptosp | Detected | | | DETECT | 8:29pm | 10:14pm | | | oridium | | | | | | | | | PCR | | | | | | | | + + + +-------+ + + + + | Stool | Not | | | NOT | 08/08/18 | 08/08/18 | | | Cyclospo | Detected | | | DETECT | 8:29pm | 10:14pm | | | ra | | | | | | | | | cayetane | | | | | | | | | nsis | | | | | | | | | (PCR) | | | | | | | | + + + +-------+ + + + + | Stool | Not | | | NOT | 08/08/18 | 08/08/18 | | | Entamoeb | Detected | | | DETECT | 8:29pm | 10:14pm | | | a | | | | | | | | | histolyt | | | | | | | | | ica | | | | | | | | | (PCR) | | | | | | | | + + + +-------+ + + + + | Stool | Not | | | NOT | 08/08/18 | 08/08/18 | | | Giardia | Detected | | | DETECT | 8:29pm | 10:14pm | | | Lamblia | | | | | | | | | PCR | | | | | | | | + + + +-------+ + + + + | Stool | Not | | | NOT | 08/08/18 | 08/08/18 | | | Adenovir | Detected | | | DETECT | 8:29pm | 10:14pm | | | us F | | | | | | | | | 40/41 | | | | | | | | | (PCR) | | | | | | | | + + + +-------+ + + + + | Stool | Not | | | NOT | 08/08/18 | 08/08/18 | | | Astrovir | Detected | | | DETECT | 8:29pm | 10:14pm | | | us (PCR) | | | | | | | | + + + +-------+ + + + + | Stool | Not | | | NOT | 08/08/18 | 08/08/18 | | | Noroviru | Detected | | | DETECT | 8:29pm | 10:14pm | | | s GI/GII | | | | | | | | | PCR | | | | | | | | + + + +-------+ + + + + | Stool | Not | | | NOT | 08/08/18 | 08/08/18 | | | Rotaviru | Detected | | | DETECT | 8:29pm | 10:14pm | | | s A PCR | | | | | | | | + + + +-------+ + + + + | Stool | Not | | | NOT | 08/08/18 | 08/08/18 | | | Sapoviru | Detected | | | DETECT | 8:29pm | 10:14pm | | | s (PCR) | | | | | | | | + + + +-------+ + + + + | White | 6.30 | K/mm3 | | 4.00-11. | 08/08/18 | 08/08/18 | | | Blood | | | | 30 | 4:48am | 5:07am | | | Count | | | | | | | | + + + +-------+ + + + + | Red | 4.27 | M/mm3 | L | 4.30-5.9 | 08/08/18 | 08/08/18 | | | Blood | | | | 0 | 4:48am | 5:07am | | | Count | | | | | | | | + + + +-------+ + + + + | Hemoglob | 12.7 | g/dL | L | 13.5-17. | 08/08/18 | 08/08/18 | | | in | | | | 5 | 4:48am | 5:07am | | + + + +-------+ + + + + | Hematocr | 37.7 | % | | 37.0-53. | 08/08/18 | 08/08/18 | | | it | | | | 0 | 4:48am | 5:07am | | + + + +-------+ + + + + | Mean | 88 | fL | | 80-100 | 08/08/18 | 08/08/18 | | | Corpuscu | | | | | 4:48am | 5:07am | | | lar | | | | | | | | | Volume | | | | | | | | + + + +-------+ + + + + | Mean | 29.7 | pg | | 26.0-34. | 08/08/18 | 08/08/18 | | | Corpuscu | | | | 0 | 4:48am | 5:07am | | | lar | | | | | | | | | Hemoglob | | | | | | | | | in | | | | | | | | + + + +-------+ + + + + | Mean | 33.7 | g/dL | | 31.5-36. | 08/08/18 | 08/08/18 | | | Corpuscu | | | | 5 | 4:48am | 5:07am | | | lar | | | | | | | | | Hemoglob | | | | | | | | | in | | | | | | | | | Concent | | | | | | | | + + + +-------+ + + + + | RDW | 40.9 | fL | | 35.1-46. | 08/08/18 | 08/08/18 | | | Standard | | | | 3 | 4:48am | 5:07am | | | | | | | | | | | | Deviatio | | | | | | | | | n | | | | | | | | + + + +-------+ + + + + | RDW | 12.6 | % | | 11.7-14. | 08/08/18 | 08/08/18 | | | Coeffici | | | | 2 | 4:48am | 5:07am | | | ent of | | | | | | | | | Variatio | | | | | | | | | n | | | | | | | | + + + +-------+ + + + + | Platelet | 230 | K/mm3 | | 150-400 | 08/08/18 | 08/08/18 | | | Count | | | | | 4:48am | 5:07am | | + + + +-------+ + + + + | Mean | 8.6 | fL | L | 9.1-12.4 | 08/08/18 | 08/08/18 | | | Platelet | | | | | 4:48am | 5:07am | | | Volume | | | | | | | | + + + +-------+ + + + + | Nucleate | 0.0 | /100 WBC | | 0.0-0.2 | 08/08/18 | 08/08/18 | | | d Red | | | | | 4:48am | 5:07am | | | Blood | | | | | | | | | Cells % | | | | | | | | + + + +-------+ + + + + | Nucleate | 0.00 | K/mm3 | | 0.00-0.0 | 08/08/18 | 08/08/18 | | | d RBC | | | | 2 | 4:48am | 5:07am | | | Absolute | | | | | | | | | Count | | | | | | | | | (auto) | | | | | | | | + + + +-------+ + + + + | Total | 5.9 | g/dL | L | 6.4-8.2 | 08/08/18 | 08/08/18 | | | Protein | | | | | 4:48am | 5:35am | | + + + +-------+ + + + + | Albumin | 2.5 | g/dL | L | 3.4-5.0 | 08/08/18 | 08/08/18 | | | | | | | | 4:48am | 5:35am | | + + + +-------+ + + + + | Globulin | 3.4 | g/dL | | 2.2-4.0 | 08/08/18 | 08/08/18 | | | | | | | | 4:48am | 5:35am | | + + + +-------+ + + + + | Albumin/ | 0.7 | | L | 0.8-1.8 | 08/08/18 | 08/08/18 | | | Globulin | | | | | 4:48am | 5:35am | | | Ratio | | | | | | | | + + + +-------+ + + + + | Total | 0.6 | mg/dL | | 0.1-1.0 | 08/08/18 | 08/08/18 | | | Bilirubi | | | | | 4:48am | 5:35am | | | n | | | | | | | | + + + +-------+ + + + + | Alkaline | 78 | U/L | | 50-136 | 08/08/18 | 08/08/18 | | | | | | | | 4:48am | 5:35am | | | Phosphat | | | | | | | | | ase | | | | | | | | + + + +-------+ + + + + | Aspartat | 12 | U/L | | 12-37 | 08/08/18 | 08/08/18 | | | e Amino | | | | | 4:48am | 5:35am | | | Transf | | | | | | | | | (AST/SGO | | | | | | | | | T) | | | | | | | | + + + +-------+ + + + + | Alanine | 16 | U/L | | 12-78 | 08/08/18 | 08/08/18 | | | Aminotra | | | | | 4:48am | 5:35am | | | nsferase | | | | | | | | | | | | | | | | | | (ALT/SGP | | | | | | | | | T) | | | | | | | | + + + +-------+ + + + + | Lactic | 0.7 | mmol/L | | 0.4-2.0 | 08/08/18 | 08/08/18 | | | Acid | | | | | 0:30am | 0:59am | | | Level | | | | | | | | + + + +-------+ + + + + Date of Admission: 08/08/18 Date of Discharge: Report: DISCHARGE SUMMARY -- PROBLEMS/PROCEDURES -- ADMISSION DATE: 08/08/18 ADMITTING DIAGNOSES: - Exacerbation of Crohn's disease - Leucocytosis - Partial small bowel obstruction - Sepsis DISCHARGE DATE: 08/10/18 DISCHARGE DIAGNOSES: - Partial small bowel obstruction - Exacerbation of Crohn's disease - Leucocytosis - Sepsis APPROXIMATE TIME SPENT (DIRECT PATIENT CARE): 25 min -- HOSPITAL COURSE -- HOSPITAL COURSE: This 38-year-old gentleman who was brought in to the hospital with concerns partial small bowel obstruction and Crohn's disease flare up. He had leukocytosis and lactic acidosis on presentation and was put on IV fluids. NG tube was placed as he was vomiting. Patient did well with supportive measures and responded very quickly. By the next morning he was passing flatus and started having bowel movements. NG tube was removed and the diet was gradually advanced to a liquid diet which he tolerated well. case was discussed with gastroenterology from [place] as we did not have graphic illustrator available in house. Was continued on Solu-Medrol 60 mg IV daily and antibiotic coverage with ceftriaxone and Flagyl. He was initially on Levaquin and Flagyl but had some redness with Levaquin so was switched to ceftriaxone. On the second day, patient's diet was advanced to regular diet and he was put on oral antibiotic coverage with ciprofloxacin and Flagyl. He tolerated this well, he had no pain and was roaming in the hallways comfortably. Patient is being discharged home on oral antibiotics for 2 weeks and prednisone 40 mg daily for a month. He has been advised to follow up with gastroenterology as soon as possible within 2 weeks. Surgery was also consulted during this admission but no surgical intervention was required. -- EXAM -- -EXAM- GENERAL: Well developed, well nourished, in no apparent distress HEAD: Normocephalic, atraumatic EYES: PERRL, EOM intact, conjunctiva and sclera clear, without nystagmus, lids normal EARS: TM's intact and clear, normal canals, grossly normal hearing NOSE: No deformity, no discharge, no inflammation, no lesions MOUTH: Oropharynx without deformities or lesions, normal mucosa. CHEST WALL: Grossly normal appearance LUNGS: Clear bilaterally with normal respiratory effort. HEART: Regular rate and rhythm, normal S1, S2, no murmurs, no rubs, no gallops, no clicks. ABDOMEN: Soft, no peritoneal signs. EXTREMITIES: No clubbing, no cyanosis, no edema SKIN: Intact without significant lesions, or rashes. PSYCH: Alert and oriented to time, person, place. Normal mood and affect, intact judgment and insight. -- DISCHARGE MEDICATIONS -- ALLERGIES: meperidine (Unknown - Allergy) morphine (Unknown - Allergy) DISCHARGE MEDICATIONS: metronidazole tab (Flagyl) 500 MG PO TID, Disp: 2 weeks , Refills: 0 ciprofloxacin tab (Cipro) 500 MG PO BID, Disp: 2 weeks , Refills: 0 sertraline tab (Zoloft) 150 MG PO DAILY hydroxyzine pamoate (Vistaril capsule) 50 MG PO BID dicyclomine tab (Bentyl) 40 MG PO TID prednisone tab (Deltasone) 40 MG PO Daily, Disp: 30 days , Refills: 0 polyethylene glycol packet (Miralax 17 gram unit dose) 1 PKT PO Daily PRN constipation, Disp: 30 , Refills: 0 -- FOLLOW UP -- DISCHARGE CONDITION: Good RECOMMENDATIONS AND DISCHARGE INSTRUCTIONS: - follow up with pcp. - Return to ER if symptoms worsen. - Medication compliance. - follow up with gastroenterology within 2 weeks. 08/10/18 1412 <Electronically signed by Chadd Page MD in [place]> Procedures No Known History of Procedures. Encounters + + + + + + | Encounter | Location | Arrival/Admit | Discharge/Depar | Attending | | | | Date | t Date | Provider | + + + + + + | Discharged | [facility] | 08/07/18 | 08/10/18 3:27pm | [place], | | Inpatient | [facility] | 10:04pm | | Ryan Frey MD | + + + + + +"
--- OUTSIDE RECORDS SUMMARY | ~2018-10-17 | XMS | Clinical Summary ---
Demographics + + + | Address | [address] | | | [place] [address] | + + + | Home Phone | | + + + | Preferred Language | Unknown | + + + | Marital Status | S | + + + | Spiritism Affiliation | Unknown | + + + | Race | White | + + + | Ethnic Group | Not or | + + + Author + + + | Author | [facility] | + + + | Organization | [facility] | + + + | Address | [address] | | | [place] [address] | + + + | Phone | Unavailable | + + + Care Team Providers + + + + | Care Reception Interviewer Name | Role | Phone | + [...] tion | | +---------+---------+---------+--------+---------+---------+---------+---------+---------+ | ABDOMIN | [id number] | | Active | | Subhaji | | Abdomin | | | AL PAIN | 1 | /29 | | /29 | t | | al pain | | | | (SNOMED | | | | Mukherj | | | | | | CT) | | | | ee MD | | | | +---------+---------+---------+--------+---------+---------+---------+---------+---------+ | CROHN'S | [id number] | | Active | | Subhaji | [...] mix and | | | NA | [id number] | Subhajit | | BOWEL PREP | [...] PDN taper: | | | PREDNISONE | [id number] | Subhajit | | 10 MG | [id number] | | | | 5 | Keny | | TABS | days; | | | | | MD | | | [id number] | | | | | | | | days; | | | | | | | | [id number] | | | | | | | [...] 1 packet | | | POLYETHYLE | [id number] | Alice | | PACK | daily prn | | | NE GLYCOL | 5 | [place] | | | | | | 3350 | | | + + + + + + + + | PREDNISONE | 2 tablets | | | PREDNISONE | [id number] | Ailce | | 20 MG | by mouth | | | | 5 | [place] | | TABS | daily | | | | | | + + + + + + + + | DICYCLOMIN | 2 tablets | | | DICYCLOMIN | [id number] | Alice | | E HCL 20 | 3 times a | | | E HCL | 1 | [place] | | MG TABS | day | | | | | | + + + + + + + + | HYDROXYZIN | one tablet | | | HYDROXYZIN | [id number] | Alice | | E PAMOATE | twice | | | E PAMOATE | 1 | [place] | | 50 MG CAPS | daily | | | | | | + + + + + + + + | SERTRALINE | 3 tablets | | | SERTRALINE | [id number] | Alice | | HCL 50 MG | daily | | | HCL | 0 | [place] | | TABS | | | | | | | + + + + + + + + | CIPROFLOXA | one tablet | | | CIPROFLOXA | [id number] | Alice | | AUNDREA HCL | po bid | | | AUNDREA HCL | 1 | [place] | | 500 MG | | | | | | | | TABS | | | | | | | + + + + + + + + | FLAGYL 500 | one tablet | | | METRONIDAZ | [id number] | Alice | | MG TABS | [...] [address] | | | | [address] [facility] | | | | [address], [place], [address], | | | | | + + [...]
--- OUTSIDE RECORDS SUMMARY | ~2018-10-17 | XMS | Clinical Summary ---
Demographics + + + | Address | [address] | | | [place] [address] | + + + | Home Phone | | + + + | Preferred Language | Unknown | + + + | Marital Status | S | + + + | Sabianism Affiliation | Unknown | + + + | Race | White | + + + | Ethnic Group | Not or | + + + Author + + + | Author | [facility] | + + + | Organization | [facility] | + + + | Address | [address] | | | [place] [address] | + + + | Phone | Unavailable | + + + Care Team Providers + + + + | Care Meat Team Member Name | Role | Phone | + [...] tion | | +---------+---------+---------+--------+---------+---------+---------+---------+---------+ | ABDOMIN | [id number] | | Active | | Subhaji | | Abdomin | | | AL PAIN | 1 | /29 | | /29 | t | | al pain | | | | (SNOMED | | | | Mukherj | | | | | | CT) | | | | ee MD | | | | +---------+---------+---------+--------+---------+---------+---------+---------+---------+ | CROHN'S | [id number] | | Active | | Subhaji | [...] mix and | | | NA | [id number] | Subhajit | | BOWEL PREP | [...] PDN taper: | | | PREDNISONE | [id number] | Subhajit | | 10 MG | [id number] | | | | 5 | Keny | | TABS | days; | | | | | MD | | | [id number] | | | | | | | | days; | | | | | | | | [id number] | | | | | | | [...] 1 packet | | | POLYETHYLE | [id number] | Alice | | PACK | daily prn | | | NE GLYCOL | 5 | [place] | | | | | | 3350 | | | + + + + + + + + | PREDNISONE | 2 tablets | | | PREDNISONE | [id number] | Alice | | 20 MG | by mouth | | | | 5 | [place] | | TABS | daily | | | | | | + + + + + + + + | DICYCLOMIN | 2 tablets | | | DICYCLOMIN | [id number] | Alice | | E HCL 20 | 3 times a | | | E HCL | 1 | [place] | | MG TABS | day | | | | | | + + + + + + + + | HYDROXYZIN | one tablet | | | HYDROXYZIN | [id number] | Alice | | E PAMOATE | twice | | | E PAMOATE | 1 | [place] | | 50 MG CAPS | daily | | | | | | + + + + + + + + | SERTRALINE | 3 tablets | | | SERTRALINE | 8555744864 | Alice | | HCL 50 MG | daily | | | HCL | 0 | [place] | | TABS | | | | | | | + + + + + + + + | CIPROFLOXA | one tablet | | | CIPROFLOXA | [id number] | Alice | | AUNDREA HCL | po bid | | | AUNDREA HCL | 1 | [place] | | 500 MG | | | | | | | | TABS | | | | | | | + + + + + + + + | FLAGYL 500 | one tablet | | | METRONIDAZ | [id number] | Alice | | MG TABS | [...] [address] | | | | [address] [facility] | | | | [address], [place], [address], | | | | | + + [...]
--- OUTSIDE RECORDS SUMMARY | ~2018-10-17 | XMS | Clinical Summary ---
Demographics + + + | Address | [address] | | | [place] [address] | + + + | Home Phone | | + + + | Preferred Language | Unknown | + + + | Marital Status | S | + + + | Alevism Affiliation | Unknown | + + + | Race | White | + + + | Ethnic Group | Not or | + + + Author + + + | Author | [facility] | + + + | Organization | [facility] | + + + | Address | [address] | | | [place] [address] | + + + | Phone | Unavailable | + + + Care Team Providers + + + + | Care Clinic Coordinator Name | Role | Phone | + [...] tion | | +---------+---------+---------+--------+---------+---------+---------+---------+---------+ | ABDOMIN | [id number] | | Active | | Subhaji | | Abdomin | | | AL PAIN | 1 | /29 | | /29 | t | | al pain | | | | (SNOMED | | | | Mukherj | | | | | | CT) | | | | ee MD | | | | +---------+---------+---------+--------+---------+---------+---------+---------+---------+ | CROHN'S | 5499248 | | Active | | Subhaji | [...] mix and | | | NA | [id number] | Subhajit | | BOWEL PREP | [...] PDN taper: | | | PREDNISONE | [id number] | Subhajit | | 10 MG | [id number] | | | | 5 | Keny | | TABS | days; | | | | | MD | | | [id number] | | | | | | | | days; | | | | | | | | [id number] | | | | | | | [...] 1 packet | | | POLYETHYLE | [id number] | Alice | | PACK | daily prn | | | NE GLYCOL | 5 | [place] | | | | | | 3350 | | | + + + + + + + + | PREDNISONE | 2 tablets | | | PREDNISONE | [id number] | Alice | | 20 MG | by mouth | | | | 5 | [place] | | TABS | daily | | | | | | + + + + + + + + | DICYCLOMIN | 2 tablets | | | DICYCLOMIN | [id number] | Alice | | E HCL 20 | 3 times a | | | E HCL | 1 | [place] | | MG TABS | day | | | | | | + + + + + + + + | HYDROXYZIN | one tablet | | | HYDROXYZIN | [id number] | Alice | | E PAMOATE | twice | | | E PAMOATE | 1 | [place] | | 50 MG CAPS | daily | | | | | | + + + + + + + + | SERTRALINE | 3 tablets | | | SERTRALINE | [id number] | Alice | | HCL 50 MG | daily | | | HCL | 0 | [place] | | TABS | | | | | | | + + + + + + + + | CIPROFLOXA | one tablet | | | CIPROFLOXA | [id number] | Alice | | AUNDREA HCL | po bid | | | AUNDREA HCL | 1 | [place] | | 500 MG | | | | | | | | TABS | | | | | | | + + + + + + + + | FLAGYL 500 | one tablet | | | METRONIDAZ | [id number] | Alice | | MG TABS | [...] [address] | | | | [address] [facility] | | | | [address], [place], [address], | | | | | + + [...]
--- OUTSIDE RECORDS SUMMARY | ~2018-10-17 | XMS ---
Demographics + + + | Address | [address] | | | [place] [address] | + + + | Home Phone | | + + + | Preferred Language | Unknown | + + + | Marital Status | S | + + + | Oriental Orthodox Affiliation | Unknown | + + + | Race | White | + + + | Ethnic Group | Not or | + + + Author + + + | Author | [facility] | + + + | Organization | [facility] | + + + | Address | [address] | | | [place] [address] | + + + | Phone | Unavailable | + + + Care Team Providers + + + + | Care Customer Care Consultant Name | Role | Phone | + [...] last seen | | | GI in [facility] and recommended | | | remicade and [...] | | | TABLET (PREDNISONE) PDN taper: 10yrk63 | | | days; 66vcc54 days; 98nde22hhi; 20mg daily | | | until seen [...] | | | note was transcribed using [employer] Speech | | | Recognition software. As [...] | CBC w/ Auto Diff [CBC AUTO 73969] (signed) | | | 08/21/2018: Lab - Rad -- | | | Comprehensive Metabolic Panel [CHEM PROF] | | | (signed) 08/21/2018: Lab - Rad -- HAV | | | Ab, IgM [HEP A IGM 84695] (signed) | | | 08/21/2018: Lab - Rad -- Hepatitis A - | | | total [HEP A TOT 94752] (signed) | | | 08/21/2018: Lab - Rad -- Hepatitis B core | | | - Igm antibody [HEP COR M 98674] (signed) | | | 08/21/2018: Lab - Rad -- HBc Ab, | | | Total [HEP B CORE 10780] (signed) | | | 08/21/2018: Lab - Rad -- Hepatitis B | | | Surface Antibody [HEP B IMMU 08165] | | | (signed) 08/21/2018: Lab - Rad -- | | | Hepatitis B Surface Antigen (HBSAG) [HEP B | | | S AG 07325] (signed) 08/21/2018: Lab | | | - Rad -- Vitamin D, 25-OH by LC-MS/MS | | | [VIT D2+D3 16373] (signed) | | | 08/21/2018: Lab - Rad -- Hepatitis C | | | Antibody Total [HEP C AB 69901] (signed) | | | 08/21/2018: Lab - Rad -- Quantiferon | | | TB Gold In-Tube [QUANT TB 93353] (signed) | | | 08/21/2018: Lab - Rad -- MR | | | Abdomen-WWO Con [35879] (signed) | | | 08/21/2018: Lab - Rad -- MR Pelvis-WWO Con | | | [89562] (signed) 08/21/2018: Lab - | | | Rad -- Calprotectin, Fecal [STL CALPRO | | | 00281] (signed) 08/21/2018: Lab - Rad | | | -- HIV 1/2 Ab RFLX to Suppl Assay [HIV AB | | | REF 58043] (signed) | + + + Assessments No information available. Chief Complaint No information available. History of Past Illness crohn disease |"
--- OUTSIDE RECORDS SUMMARY | ~2018-10-17 | XMS | Clinical Summary ---
Demographics + + + | Address | [address] | | | [place] [address] | + + + | Home Phone | | + + + | Preferred Language | Unknown | + + + | Marital Status | S | + + + | Sikh Affiliation | Unknown | + + + | Race | White | + + + | Ethnic Group | Not or | + + + Author + + + | Author | [facility] | + + + | Organization | [facility] | + + + | Address | [address] | | | [place] [address] | + + + | Phone | Unavailable | + + + Care Team Providers + + + + | Care Icu Clerk Name | Role | Phone | + [...] tion | | +---------+---------+---------+--------+---------+---------+---------+---------+---------+ | ABDOMIN | [id number] | | Active | | Subhaji | | Abdomin | | | AL PAIN | 1 | /29 | | /29 | t | | al pain | | | | (SNOMED | | | | Mukherj | | | | | | CT) | | | | ee MD | | | | +---------+---------+---------+--------+---------+---------+---------+---------+---------+ | CROHN'S | [id number] | | Active | | Subhaji | [...] mix and | | | NA | [id number] | Subhajit | | BOWEL PREP | [...] PDN taper: | | | PREDNISONE | [id number] | Subhajit | | 10 MG | [id number] | | | | 5 | Keny | | TABS | days; | | | | | MD | | | [id number] | | | | | | | | days; | | | | | | | | [id number] | | | | | | | [...] 1 packet | | | POLYETHYLE | [id number] | Alice | | PACK | daily prn | | | NE GLYCOL | 5 | [place] | | | | | | 3350 | | | + + + + + + + + | PREDNISONE | 2 tablets | | | PREDNISONE | [id number] | Alice | | 20 MG | by mouth | | | | 5 | [place] | | TABS | daily | | | | | | + + + + + + + + | DICYCLOMIN | 2 tablets | | | DICYCLOMIN | [id number] | Alice | | E HCL 20 | 3 times a | | | E HCL | 1 | [place] | | MG TABS | day | | | | | | + + + + + + + + | HYDROXYZIN | one tablet | | | HYDROXYZIN | [id number] | Alice | | E PAMOATE | twice | | | E PAMOATE | 1 | [place] | | 50 MG CAPS | daily | | | | | | + + + + + + + + | SERTRALINE | 3 tablets | | | SERTRALINE | 1341418152 | Alice | | HCL 50 MG | daily | | | HCL | 0 | [place] | | TABS | | | | | | | + + + + + + + + | CIPROFLOXA | one tablet | | | CIPROFLOXA | [id number] | Alice | | AUNDREA HCL | po bid | | | AUNDREA HCL | 1 | [place] | | 500 MG | | | | | | | | TABS | | | | | | | + + + + + + + + | FLAGYL 500 | one tablet | | | METRONIDAZ | [id number] | Alice | | MG TABS | [...] [address] | | | | [address] [facility] | | | | [address], [place], [address], | | | | | + + [...]
--- OUTSIDE RECORDS SUMMARY | ~2018-10-17 | XMS ---
Demographics + + + | Address | [address] | | | [place] [address] | + + + | Home Phone | | + + + | Preferred Language | Unknown | + + + | Marital Status | S | + + + | Scientology Affiliation | Unknown | + + + | Race | White | + + + | Ethnic Group | Not or | + + + Author + + + | Author | [facility] | + + + | Organization | [facility] | + + + | Address | [address] | | | [place] [address] | + + + | Phone | Unavailable | + + + Care Team Providers + + + + | Care Crisis Counselor Name | Role | Phone | + [...] last seen | | | GI in [facility] and recommended | | | [...] | | | TABLET (PREDNISONE) PDN taper: 65tmc20 | | | days; 63hsz64 days; 66wxq02erq; 20mg daily | | | until seen [...] | | | note was transcribed using [employer]Box Speech | | | Recognition software. As [...] | CBC w/ Auto Diff [CBC AUTO 67647] (signed) | | | 08/21/2018: Lab - Rad -- | | | Comprehensive Metabolic Panel [CHEM PROF] | | | (signed) 08/21/2018: Lab - Rad -- HAV | | | Ab, IgM [HEP A IGM 48855] (signed) | | | 08/21/2018: Lab - Rad -- Hepatitis A - | | | total [HEP A TOT 60674] (signed) | | | 08/21/2018: Lab - Rad -- Hepatitis B core | | | - Igm antibody [HEP COR M 73106] (signed) | | | 08/21/2018: Lab - Rad -- HBc Ab, | | | Total [HEP B CORE 82380] (signed) | | | 08/21/2018: Lab - Rad -- Hepatitis B | | | Surface Antibody [HEP B IMMU 03067] | | | (signed) 08/21/2018: Lab - Rad -- | | | Hepatitis B Surface Antigen (HBSAG) [HEP B | | | S AG 27921] (signed) 08/21/2018: Lab | | | - Rad -- Vitamin D, 25-OH by LC-MS/MS | | | [VIT D2+D3 12874] (signed) | | | 08/21/2018: Lab - Rad -- Hepatitis C | | | Antibody Total [HEP C AB 10997] (signed) | | | 08/21/2018: Lab - Rad -- Quantiferon | | | TB Gold In-Tube [QUANT TB 20334] (signed) | | | 08/21/2018: Lab - Rad -- MR | | | Abdomen-WWO Con [16413] (signed) | | | 08/21/2018: Lab - Rad -- MR Pelvis-WWO Con | | | [89117] (signed) 08/21/2018: Lab - | | | Rad -- Calprotectin, Fecal [STL CALPRO | | | 53811] (signed) 08/21/2018: Lab - Rad | | | -- HIV 1/2 Ab RFLX to Suppl Assay [HIV AB | | | REF 16896] (signed) | + + + Assessments No information available. Chief Complaint No information available. History of Past Illness crohn disease |"
--- OUTSIDE RECORDS SUMMARY | ~2018-10-17 | XMS ---
Demographics + + + | Address | [address] | | | [place] [address] | + + + | Home Phone | | + + + | Preferred Language | Unknown | + + + | Marital Status | S | + + + | Muslim Affiliation | Unknown | + + + | Race | White | + + + | Ethnic Group | Not or | + + + Author + + + | Author | [facility] | + + + | Organization | [facility] | + + + | Address | [address] | | | [place] [address] | + + + | Phone | Unavailable | + + + Care Team Providers + + + + | Care Professor Of Mechanical Engineering Name | Role | Phone | + [...] last seen | | | GI in [facility] and recommended | | | [...] | | | TABLET (PREDNISONE) PDN taper: 61jly71 | | | days; 87zia79 days; 15xij41qyg; 20mg daily | | | until seen [...] | | | note was transcribed using [employer] Speech | | | Recognition software. As [...] | CBC w/ Auto Diff [CBC AUTO 42580] (signed) | | | 08/21/2018: Lab - Rad -- | | | Comprehensive Metabolic Panel [CHEM PROF] | | | (signed) 08/21/2018: Lab - Rad -- HAV | | | Ab, IgM [HEP A IGM 74579] (signed) | | | 08/21/2018: Lab - Rad -- Hepatitis A - | | | total [HEP A TOT 34482] (signed) | | | 08/21/2018: Lab - Rad -- Hepatitis B core | | | - Igm antibody [HEP COR M 48112] (signed) | | | 08/21/2018: Lab - Rad -- HBc Ab, | | | Total [HEP B CORE 66881] (signed) | | | 08/21/2018: Lab - Rad -- Hepatitis B | | | Surface Antibody [HEP B IMMU 72437] | | | (signed) 08/21/2018: Lab - Rad -- | | | Hepatitis B Surface Antigen (HBSAG) [HEP B | | | S AG 40916] (signed) 08/21/2018: Lab | | | - Rad -- Vitamin D, 25-OH by LC-MS/MS | | | [VIT D2+D3 31020] (signed) | | | 08/21/2018: Lab - Rad -- Hepatitis C | | | Antibody Total [HEP C AB 74756] (signed) | | | 08/21/2018: Lab - Rad -- Quantiferon | | | TB Gold In-Tube [QUANT TB 39617] (signed) | | | 08/21/2018: Lab - Rad -- MR | | | Abdomen-WWO Con [76037] (signed) | | | 08/21/2018: Lab - Rad -- MR Pelvis-WWO Con | | | [65458] (signed) 08/21/2018: Lab - | | | Rad -- Calprotectin, Fecal [STL CALPRO | | | 44242] (signed) 08/21/2018: Lab - Rad | | | -- HIV 1/2 Ab RFLX to Suppl Assay [HIV AB | | | REF 04112] (signed) | + + + Assessments No information available. Chief Complaint No information available. History of Past Illness crohn disease |"
--- OUTSIDE RECORDS SUMMARY | ~2018-10-17 | XMS ---
Demographics + + + | Address | [address] | | | [place] [address] | + + + | Home Phone | | + + + | Preferred Language | Unknown | + + + | Marital Status | S | + + + | Anabaptism Affiliation | Unknown | + + + | Race | White | + + + | Ethnic Group | Not or | + + + Author + + + | Author | [facility] | + + + | Organization | [facility] | + + + | Address | [address] | | | [place] [address] | + + + | Phone | Unavailable | + + + Care Team Providers + + + + | Care Certified Driver Examiner Name | Role | Phone | + [...] last seen | | | GI in [facility] and recommended | | | remicade and [...] | | | TABLET (PREDNISONE) PDN taper: 32xvx18 | | | days; 05wjs63 days; 24nra29kxd; 20mg daily | | | until seen [...] | | | note was transcribed using [employer] Speech | | | Recognition software. As [...] | CBC w/ Auto Diff [CBC AUTO 74650] (signed) | | | 08/21/2018: Lab - Rad -- | | | Comprehensive Metabolic Panel [CHEM PROF] | | | (signed) 08/21/2018: Lab - Rad -- HAV | | | Ab, IgM [HEP A IGM 93576] (signed) | | | 08/21/2018: Lab - Rad -- Hepatitis A - | | | total [HEP A TOT 63416] (signed) | | | 08/21/2018: Lab - Rad -- Hepatitis B core | | | - Igm antibody [HEP COR M 45839] (signed) | | | 08/21/2018: Lab - Rad -- HBc Ab, | | | Total [HEP B CORE 57569] (signed) | | | 08/21/2018: Lab - Rad -- Hepatitis B | | | Surface Antibody [HEP B IMMU 37317] | | | (signed) 08/21/2018: Lab - Rad -- | | | Hepatitis B Surface Antigen (HBSAG) [HEP B | | | S AG 33498] (signed) 08/21/2018: Lab | | | - Rad -- Vitamin D, 25-OH by LC-MS/MS | | | [VIT D2+D3 75322] (signed) | | | 08/21/2018: Lab - Rad -- Hepatitis C | | | Antibody Total [HEP C AB 25683] (signed) | | | 08/21/2018: Lab - Rad -- Quantiferon | | | TB Gold In-Tube [QUANT TB 12875] (signed) | | | 08/21/2018: Lab - Rad -- MR | | | Abdomen-WWO Con [05019] (signed) | | | 08/21/2018: Lab - Rad -- MR Pelvis-WWO Con | | | [47602] (signed) 08/21/2018: Lab - | | | Rad -- Calprotectin, Fecal [STL CALPRO | | | 92941] (signed) 08/21/2018: Lab - Rad | | | -- HIV 1/2 Ab RFLX to Suppl Assay [HIV AB | | | REF 15849] (signed) | + + + Assessments No information available. Chief Complaint No information available. History of Past Illness crohn disease |"
--- OUTSIDE RECORDS SUMMARY | ~2018-10-17 | XMS | Clinical Summary ---
Demographics + + + | Address | [address] | | | [place] [address] | + + + | Home Phone | | + + + | Preferred Language | Unknown | + + + | Marital Status | S | + + + | Anabaptist Affiliation | Unknown | + + + | Race | White | + + + | Ethnic Group | Not or | + + + Author + + + | Author | [facility] | + + + | Organization | [facility] | + + + | Address | [address] | | | [place] [address] | + + + | Phone | Unavailable | + + + Care Team Providers + + + + | Care Marketing Project Manager Name | Role | Phone | + [...] tion | | +---------+---------+---------+--------+---------+---------+---------+---------+---------+ | ABDOMIN | [id number] | | Active | | Subhaji | | Abdomin | | | AL PAIN | 1 | /29 | | /29 | t | | al pain | | | | (SNOMED | | | | Mukherj | | | | | | CT) | | | | ee MD | | | | +---------+---------+---------+--------+---------+---------+---------+---------+---------+ | CROHN'S | 4291004 | | Active | | Subhaji | [...] mix and | | | NA | [id number] | Subhajit | | BOWEL PREP | [...] PDN taper: | | | PREDNISONE | [id number] | Subhajit | | 10 MG | 89rdm64 | | | | 5 | Keny | | TABS | days; | | | | | MD | | | [id number] | | | | | | | | days; | | | | | | | | [id number] | | | | | | | [...] 1 packet | | | POLYETHYLE | [id number] | Alice | | PACK | daily prn | | | NE GLYCOL | 5 | [place] | | | | | | 3350 | | | + + + + + + + + | PREDNISONE | 2 tablets | | | PREDNISONE | [id number] | Alice | | 20 MG | by mouth | | | | 5 | [place] | | TABS | daily | | | | | | + + + + + + + + | DICYCLOMIN | 2 tablets | | | DICYCLOMIN | [id number] | Alice | | E HCL 20 | 3 times a | | | E HCL | 1 | [place] | | MG TABS | day | | | | | | + + + + + + + + | HYDROXYZIN | one tablet | | | HYDROXYZIN | [id number] | Alice | | E PAMOATE | twice | | | E PAMOATE | 1 | [place] | | 50 MG CAPS | daily | | | | | | + + + + + + + + | SERTRALINE | 3 tablets | | | SERTRALINE | [id number] | Alice | | HCL 50 MG | daily | | | HCL | 0 | [place] | | TABS | | | | | | | + + + + + + + + | CIPROFLOXA | one tablet | | | CIPROFLOXA | [id number] | Alice | | AUNDREA HCL | po bid | | | AUNDREA HCL | 1 | [place] | | 500 MG | | | | | | | | TABS | | | | | | | + + + + + + + + | FLAGYL 500 | one tablet | | | METRONIDAZ | [id number] | Alice | | MG TABS | [...] [address] | | | | [address] [facility] | | | | [address], [place], [address], | | | | | + + [...]
--- OUTSIDE RECORDS SUMMARY | ~2018-10-17 | XMS | Clinical Summary ---
Demographics + + + | Address | [address] | | | [place] [address] | + + + | Home Phone | | + + + | Preferred Language | Unknown | + + + | Marital Status | Single | + + + | Scientology Affiliation | CHR | + + + [...] Team Providers + +------+ + | Care Tissue Rewinder Name | Role | Phone | + +------+ + | Theresa High NP | PP | | + +------+ + Source Comments [facility] is fully live on both [facility] and [facility] Allergies + + + + + [...] | | | + +--------+ +--------+-------+---------+ | ANGULAR DEVELOPER MEDICAID | ANGULAR DEVELOPER | xxxxxxxx | Medica | | | [...] | Self [birth year] | Home: | [address] | | | al/Fam | | 1980 | [phone] | [place] [address] | | | tory | | | [phone] | | + +--------+ +--------+ + +
--- OUTSIDE RECORDS SUMMARY | ~2018-10-17 | XMS ---
Demographics + + + | Address | [address] | | | [place] [address] | + + + | Home Phone [...] Author + + + | Author | [facility] | + + + | Organization | [facility] | + + + | Address | [address] | | | [place] [address] | + + + | Phone | Unavailable | + + + Care Team Providers + + + + | Care Raised Printer Name | Role | Phone | + [...] last seen | | | GI in [facility] and recommended | | | [...] | | | TABLET (PREDNISONE) PDN taper: 67rhi11 | | | days; 12kzd51 days; 81bbd58exf; 20mg daily | | | until seen [...] | | | note was transcribed using [employer] Speech | | | Recognition software. As [...] | CBC w/ Auto Diff [CBC AUTO [id number]] (signed) | | | 08/21/2018: Lab - Rad -- | | | Comprehensive Metabolic Panel [CHEM PROF] | | | (signed) 08/21/2018: Lab - Rad -- HAV | | | Ab, IgM [HEP A IGM 66849] (signed) | | | 08/21/2018: Lab - Rad -- Hepatitis A - | | | total [HEP A TOT 72159] (signed) | | | 08/21/2018: Lab - Rad -- Hepatitis B core | | | - Igm antibody [HEP COR M 99454] (signed) | | | 08/21/2018: Lab - Rad -- HBc Ab, | | | Total [HEP B CORE 08761] (signed) | | | 08/21/2018: Lab - Rad -- Hepatitis B | | | Surface Antibody [HEP B IMMU 02838] | | | (signed) 08/21/2018: Lab - Rad -- | | | Hepatitis B Surface Antigen (HBSAG) [HEP B | | | S AG 65267] (signed) 08/21/2018: Lab | | | - Rad -- Vitamin D, 25-OH by LC-MS/MS | | | [VIT D2+D3 94989] (signed) | | | 08/21/2018: Lab - Rad -- Hepatitis C | | | Antibody Total [HEP C AB 46060] (signed) | | | 08/21/2018: Lab - Rad -- Quantiferon | | | TB Gold In-Tube [QUANT TB 97092] (signed) | | | 08/21/2018: Lab - Rad -- MR | | | Abdomen-WWO Con [34788] (signed) | | | 08/21/2018: Lab - Rad -- MR Pelvis-WWO Con | | | [41430] (signed) 08/21/2018: Lab - | | | Rad -- Calprotectin, Fecal [STL CALPRO | | | 84910] (signed) 08/21/2018: Lab - Rad | | | -- HIV 1/2 Ab RFLX to Suppl Assay [HIV AB | | | REF 92210] (signed) | + + + Assessments No information available. Chief Complaint No information available. History of Past Illness crohn disease |"
--- OUTSIDE RECORDS SUMMARY | ~2018-10-17 | XMS ---
Demographics + + + | Address | [address] | | | [place] [address] | + + + | Home Phone [...] Author + + + | Author | [facility] | + + + | Organization | [facility] | + + + | Address | [address] | | | [place] [address] | + + + | Phone | Unavailable | + + + Care Team Providers + + + + | Care Cert Pharmacy Tech Name | Role | Phone | + [...] last seen | | | GI in [facility] and recommended | | | remicade [...] | | | TABLET (PREDNISONE) PDN taper: 38mdm21 | | | days; 73ujh43 days; 79nwg77ngw; 20mg daily | | | until seen [...] | | | note was transcribed using [employer] Speech | | | Recognition software. As [...] | CBC w/ Auto Diff [CBC AUTO 00498] (signed) | | | 08/21/2018: Lab - Rad -- | | | Comprehensive Metabolic Panel [CHEM PROF] | | | (signed) 08/21/2018: Lab - Rad -- HAV | | | Ab, IgM [HEP A IGM 66080] (signed) | | | 08/21/2018: Lab - Rad -- Hepatitis A - | | | total [HEP A TOT 44034] (signed) | | | 08/21/2018: Lab - Rad -- Hepatitis B core | | | - Igm antibody [HEP COR M 07763] (signed) | | | 08/21/2018: Lab - Rad -- HBc Ab, | | | Total [HEP B CORE 38697] (signed) | | | 08/21/2018: Lab - Rad -- Hepatitis B | | | Surface Antibody [HEP B IMMU 49043] | | | (signed) 08/21/2018: Lab - Rad -- | | | Hepatitis B Surface Antigen (HBSAG) [HEP B | | | S AG 49533] (signed) 08/21/2018: Lab | | | - Rad -- Vitamin D, 25-OH by LC-MS/MS | | | [VIT D2+D3 91907] (signed) | | | 08/21/2018: Lab - Rad -- Hepatitis C | | | Antibody Total [HEP C AB 82421] (signed) | | | 08/21/2018: Lab - Rad -- Quantiferon | | | TB Gold In-Tube [QUANT TB 77515] (signed) | | | 08/21/2018: Lab - Rad -- MR | | | Abdomen-WWO Con [[id number]] (signed) | | | 08/21/2018: Lab - Rad -- MR Pelvis-WWO Con | | | [[id number]] (signed) 08/21/2018: Lab - | | | Rad -- Calprotectin, Fecal [STL CALPRO | | | 80741] (signed) 08/21/2018: Lab - Rad | | | -- HIV 1/2 Ab RFLX to Suppl Assay [HIV AB | | | REF 27245] (signed) | + + + Assessments No information available. Chief Complaint No information available. History of Past Illness crohn disease |"
[~2018-10-17 16:16] MED LIST changes: +DICYCLOMINE HCL20 MG PO
--- OUTSIDE RECORDS SUMMARY | 2018-10-17 16:20 | XMS ---
PreManage Notification: JASON PRESTON Security Slab Grinder Events No recent Security Events currently on file CRITERIA MET - [facility] - 3 Facilities in 90 Days CARE PROVIDERS There are no care providers on record at this time. Kian has no Care Guidelines for this patient. Nina VISIT COUNT (12 MO.) [address] [place] [address] [facility] T[facility] 3 NOTE: Visits indicate total known visits. ED/C VISIT TRACKING (12 MO.) 10/17/2018 16:17 [facility] TYPE: Emergency COMPLAINT: - MEDICATION REFILL 08/07/2018 22:04 [facility] TYPE: Emergency COMPLAINT: - AMB BOWEL OBS 08/07/2018 15:37 Alexander SANCHEZ [facility] TYPE: Emergency COMPLAINT: - possible bowel blockage INPATIENT VISIT TRACKING (12 MO.) 08/08/2018 01:07 [facility] TYPE: Medical Surgical COMPLAINT: - EXACERBATION OF CROHNS DISEASE DIAGNOSES: - Allergy status to narcotic agent status - Allergy status to other drugs, medicaments and biological substances status - Sepsis, unspecified organism - Other measurer (current) drug therapy - Personal history of nicotine dependence - Unspecified intestinal obstruction, unspecified as to partial versus complete obstruction - Sepsis, unspecified organism - Crohn's disease, unspecified, with unspecified complications - Allergy status to other drugs, medicaments and biological substances status - Other prison (current) drug therapy - Personal history of nicotine dependence - Sepsis, unspecified organism - Crohn's disease, unspecified, with unspecified complications - Allergy status to narcotic agent status - Unspecified intestinal obstruction, unspecified as to partial versus complete obstruction [email or web address]
[2018-10-17] MEDS ORDERED: GUANFACINE HCL2 MG PO (16:39)
[2018-10-17] MEDS ORDERED: DICYCLOMINE HCL20 MG PO (16:39)
[2018-10-17] MEDS ORDERED: ZOLOFT100 MG PO (16:39)
[2018-10-17] MEDS ORDERED: PREDNISONE10 MG PO (16:39)
== END 2018-10-17 16:51 | disposition home or self-care (01) ==
LOC: ED 16:16
DX: K50.90 Crohn's disease, unspecified, without complications (principal); Z76.0 Encounter for issue of repeat prescription; F41.9 Anxiety disorder, unspecified; F32.9 Major depressive disorder, single episode, unspecified; F17.200 Nicotine dependence, unspecified, uncomplicated; Z88.5 Allergy status to narcotic agent; Z88.8 Allergy status to other drugs, medicaments and biological substances; Z79.899 Other long term (current) drug therapy; Z79.52 Long term (current) use of systemic steroids
CPT/HCPCS: 99283

== ENCOUNTER 2018-11-30 16:47 | Emergency (ER) | payer OTHER ==
[~2018-11-30] VITALS: Ht 180.3 cm; Wt 67.6 kg
--- OUTSIDE RECORDS SUMMARY | ~2018-11-30 | XMS | Clinical Summary ---
Demographics + + + | Address | [address] | | | [place] [address] | + + + | Home Phone | | + + + | Preferred Language | Unknown | + + + | Marital Status | Single | + + + | Zoroastrian Affiliation | CHR | + + + | Race | White | + + + | Ethnic Group | Not or | + + + Author + + + | Author | [facility] | + + + | Organization | [facility] | + + + | Address | Unknown | + + + | Phone | Unavailable | + + + Support + + +---------+ + | Name | Relationship | Address | Phone | + + +---------+ + | Yossi Bucio | ECON | Unknown | | + + +---------+ + Care Team Providers + +------+ + | Care Hollow Handle Bench Worker Name | Role | Phone | + +------+ + | Theresa High NP | PP | | + +------+ + Source Comments DION is fully live on both [facility] Ambulatory and [facility] InPatient.[facility] Allergies + + + + + + | Active Allergy | Reactions | Severity | Noted | Comments | | | | | Date | | + + + + + + | Meperidine (Pf) | Rash | | 02/22/20 | | | | | | 17 | | + + + + + + | Morphine | Seizures | | 02/22/20 | | | | | | 17 | | + + + + + + Current Medications + + +---------+---------+------+------+-------+ | Prescription | Sig. | Disp. | Refills | Star | End | Statu | | | | | | t | Date | s | | | | | | Date | | | + + +---------+---------+------+------+-------+ | dicyclomine 20 mg | Take 2 tablets by | 90 | 0 | 08/0 | | Activ | | oral | mouth three times | tablet | | 5/20 | | e | | tabletIndications: | daily. Indications: | | | 17 | | | | irritable colon | Irritable Bowel | | | | | | | | Syndrome | | | | | | + + +---------+---------+------+------+-------+ | folic acid 1 mg | Take 1 tablet by | 30 | 0 | 08/0 | | Activ | | oral tablet | mouth once daily. | tablet | | 5/20 | | e | | | | | | 17 | | | + + +---------+---------+------+------+-------+ | gabapentin 300 mg | Take 2 capsules by | 180 | 0 | 08/0 | | Activ | | oral | mouth three times | capsule | | 5/20 | | e | | capsuleIndications: | daily. Indications: | | | 17 | | | | Fibromyalgia | Fibromyalgia | | | | | | + + +---------+---------+------+------+-------+ | predniSONE 20 mg | Take 2 tablets by | 60 | 0 | 08/0 | | Activ | | oral | mouth once daily. | tablet | | 20 | | e | | tabletIndications: | Indications: | | | 17 | | | | inflammatory bowel | Inflammatory Bowel | | | | | | | disease | Disease | | | | | | + + +---------+---------+------+------+-------+ | | Take 1 tablet by | 12 | 0 | 08/0 | | Activ | | trimethoprim-sulfame | mouth three times | tablet | | 20 | | e | | thoxazole 160-800 mg | weekly (on Monday, | | | 17 | | | | oral | Monday and | | | | | | | tabletIndications: | Monday). This | | | | | | | pneumocystis | antibiotic is to | | | | | | | pneumonia, | prevent infections | | | | | | | prophylaxis | while you are on | | | | | | | | high doses of | | | | | | | | prednisone. | | | | | | | | Indications: | | | | | | | | pneumonia prevention | | | | | | + + +---------+---------+------+------+-------+ | calcium-vitamin D | Take 1 tablet by | 90 | 0 | 08/0 | | Activ | | (CALCIUM 500+D) 500 | mouth three times | tablet | | 5/20 | | e | | mg(1,250mg) -200 | daily. | | | 17 | | | | unit oral tablet | | | | | | | + + +---------+---------+------+------+-------+ | famotidine 20 mg | Take 1 tablet by | 60 | 0 | 08/0 | | Activ | | oral tablet | mouth two times | tablet | | 5/20 | | e | | | daily. GI protection | | | 17 | | | | | while on high dose | | | | | | | | steroids. | | | | | | + + +---------+---------+------+------+-------+ Active Problems + + + | Problem | Noted Date | + + + | Crohn's disease of colon with complication (HCC) | 02/21/2017 | + + + | Anxiety | 02/21/2017 | + + + | Depression | 02/21/2017 | + + + | Normocytic anemia | 02/21/2017 | + + + | Acute Crohn's disease with fistula (HCC) | 02/21/2017 | + + + Immunizations + + + + | Name | Dates Previously Given | Next Due | + + + + | Ppd (tuberculin | 02/23/2017 | | | Purified Protein | | | | Derivative) | | | + + + + Social History + + + +--------+------+ | Tobacco Use | Types | Packs/Day | Years | Date | | | | | Used | | + + + +--------+------+ | Current Every Day | Cigarettes | | 12 | | | Smoker | | | | | + + + +--------+------+ + + | Tobacco Cessation: Ready to Quit: No | + + + + +---------+ + | Alcohol Use | Drinks/We | oz/Week | Comments | | | ek | | | + + +---------+ + | No | | | | + + +---------+ + + + + | Sex Assigned at | Date Recorded | | | | + + + | Not on file | | + + + Last Filed Vital Signs + + + + | Vital Sign | Reading | Time Taken | + + + + | Blood Pressure | 119/79 | 02/25/2017 2:37 PM PDT | + + + + | Pulse | 56 | 02/25/2017 2:37 PM PDT | + + + + | Temperature | 36.8 C (98.2 F) | 02/25/2017 2:37 PM PDT | + + + + | Respiratory Rate | 14 | 02/25/2017 2:37 PM PDT | + + + + | Oxygen Saturation | 98% | 02/25/2017 2:37 PM PDT | + + + + | Inhaled Oxygen | - | - | | Concentration | | | + + + + | Weight | 65.4 kg (144 lb 1.6 | 02/21/2017 12:04 AM PDT | | | oz) | | + + + + | Height | 184.2 cm (6' 0.5") | 02/21/2017 12:04 AM PDT | + + + + | Body Mass Index | 19.27 | 02/21/2017 12:04 AM PDT | + + + + Plan of Treatment + + + + + | Health Maintenance | Due Date | Last Done | Comments | + + + + + | Pneumococcal (Adult) | | | | | (1 of 1 - PPSV23) | 7 | | | + + + + + | Influenza (Flu) | | | | | vaccination (Season | 9 | | | | Ended) | | | | + + + + + Results Not on filefrom Last 3 Months Insurance + +--------+ +--------+-------+---------+ | Payer | Benefi | Subscriber | Type | Phone | Address | | | t Plan | ID | | | | | | / | | | | | | | Group | | | | | + +--------+ +--------+-------+---------+ | VP SOFTWARE MEDICAID | VP SOFTWARE | xxxxxxxx | Medica | | | | | EASTER | | id | | | | | N [place] | | | | | + +--------+ +--------+-------+---------+ + +--------+ +--------+ + + | Guarantor Name | Accoun | Relation to | Date | Phone | Billing Address | | | t Type | Patient | of | | | | | | | | | | + +--------+ +--------+ + + | FAHEEM BUCIO | Person | Self [birth year] Home: | [address] | | | al/Fam | | 1979 | [phone] | [place] [address] | | | tory | | | [phone] | | + +--------+ +--------+ + +
--- OUTSIDE RECORDS SUMMARY | ~2018-11-30 | XMS | Clinical Summary ---
Demographics + + + | Address | [address] | | | [place] [address] | + + + | Home Phone | | + + + | Preferred Language | Unknown | + + + | Marital Status | Single | + + + | Sabianism Affiliation | CHR | + + + [...] Team Providers + +------+ + | Care Mortar Worker Name | Role | Phone | + +------+ + | Theresa High NP | PP | | + +------+ + Source Comments DION is fully live on both [facility] and [facility] Allergies + + + + + [...] | | | + +--------+ +--------+-------+---------+ | HORTICULTURE SUPERINTENDENT MEDICAID | HORTICULTURE SUPERINTENDENT | xxxxxxxx | Medica | | | [...] | Self | [birth year] | Home: | [address] | | | al/Fam | | 1979 | [phone] | [place] [address] | | | tory | | | [phone] | | + +--------+ +--------+ + +
[~2018-11-30 16:47] MED LIST changes: +GUANFACINE HCL2 MG PO; +ZOLOFT100 MG PO
--- OUTSIDE RECORDS SUMMARY | 2018-11-30 16:50 | XMS ---
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 Kian has no Care Guidelines for this patient. Care History Medical/Surgical 10/19/2018 [facility] - [facility] CASE MANAGEMENT REFERRAL MADE- PATIENT DOES NOT HAVE A PCP AND HAS [employer] INSURANCE E.D. VISIT COUNT (12 MO.) [address] [facility] [address] [facility] Christina Bonds [address] [place] [address] TOTAL 4 NOTE: Visits indicate total known visits. ED/UCC VISIT TRACKING (12 MO.) 11/30/2018 16:48 [facility] [place] TYPE: Emergency COMPLAINT: - ABD PAIN 10/17/2018 16:17 [facility] [place] TYPE: Emergency COMPLAINT: - MEDICATION REFILL DIAGNOSES: - Crohn's disease, unspecified, without complications - Allergy status to other drugs, medicaments and biological substances status - Major depressive disorder, single episode, unspecified - Crohn's disease, unspecified, without complications - Encounter for issue of repeat prescription - Anxiety disorder, unspecified - Allergy status to narcotic agent status - Encounter for issue of repeat prescription - Nicotine dependence, unspecified, uncomplicated - Other mcfp (current) drug therapy - senior living (current) use of systemic steroids 08/07/2018 22:04 [facility] [place] TYPE: Emergency COMPLAINT: - AMB BOWEL OBS 08/07/2018 15:37 Alexander SANC[facility] TYPE: Emergency COMPLAINT: - possible bowel blockage INPATIENT VISIT TRACKING (12 MO.) 08/08/2018 01:07 [facility] [place] TYPE: Medical Surgical COMPLAINT: - EXACERBATION OF CROHNS DISEASE DIAGNOSES: - Allergy status to narcotic agent status - Allergy status to other drugs, medicaments and biological substances status - Sepsis, unspecified organism - 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 - Personal history of nicotine dependence - Unspecified intestinal obstruction, unspecified as to partial versus complete obstruction - Sepsis, unspecified organism - Crohn's disease, unspecified, with unspecified complications - Allergy status to other drugs, medicaments and biological substances status - 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
[2018-11-30] MEDS ORDERED: SERTRALINE HCL50 MG PO (19:44)
[2018-11-30] MEDS ORDERED: PREDNISONE20 MG PO (19:44)
== END 2018-11-30 19:56 | disposition home or self-care (01) ==
LOC: ED 16:47
DX: R10.9 Unspecified abdominal pain (principal); F17.200 Nicotine dependence, unspecified, uncomplicated; F32.9 Major depressive disorder, single episode, unspecified; F41.9 Anxiety disorder, unspecified; Z88.5 Allergy status to narcotic agent; Z79.899 Other long term (current) drug therapy
CPT/HCPCS: 74177; 80053; 83690; 85025; 96361; 99284-25; J2765; J3010; J7030; Q9967

== ENCOUNTER 2021-06-13 11:00 | Inpatient (IN) | payer OTHER ==
[~2021-06-13] VITALS: Ht 180.3 cm; Wt 61.8 kg
--- NOTE | ~2021-06-13 | DS ---
[facility] [address] [place], [place] [address] Draft ADMISSION DATE: 06/13/2021 DISCHARGE DATE: 06/14/2021 REASON FOR ADMISSION: This 41-year-old white man has longstanding Crohn's disease and has had episodic small-bowel obstruction many times over the years. The patient has undergone terminal ileectomy in the distant past in [facility] while incarcerated. The patient has been treated from mwgl-dj-nonm with steroid rescue. He reports that he is intolerant of usual medications for maintenance including mesalamine, Remicade, Humira, and others. He describes allergies and reactions to all medicines and is resistant to taking any such maintenance therapy. He was managed by a physician orthodontic assistant, Naomie Griffiths in the [facility] [place]. He presented to the hospital with abdominal pain, nausea and vomiting. A CT scan, which showed a low-grade distal bowel obstruction, region of the terminal ileum. He was admitted to my service for further evaluation and care. PERTINENT PHYSICAL EXAMINATION: GENERAL: Showed an unhealthy, chronically ill-appearing white man, who did not look actually systemically toxic. HEENT: Nasogastric tube in place, which was decompressing bilious fluid. CHEST: Clear. HEART: Regular. ABDOMEN: Soft and nondistended and only minimal mild tenderness to the right side. HOSPITAL COURSE: The patient is maintained with his nasogastric tube and allowed sips of clear liquids for comfort. I initiated hydrocortisone 100 mg IV q.8 hours and ulcer protection with IV Protonix. The patient had prompt resolution of his initial complaint, having bowel movements and bowel function returned. I had recommended the nasogastric tube be removed, initiation of clear liquid diet to be advanced as tolerated. Unfortunately, the patient strictly refused to that approach and simply wanted to "go home." The patient has had these episodes many times and feels that he would be best served by simply a tapering dose of prednisone (which I had intended anyway). I did emphasize to him that smoking and use of illicit drugs including methamphetamine, which he admits to is extremely unhealthy for bowel vascularity and worsening of his Crohn's disease. He understands. PATIENT NAME: JASON PRESTON DISCHARGE SUMMARY DATE OF : 76 REPORT #: [id number] PHYSICIAN: ALISTAIR LANDERS MD PCP: NAOMIE GRIFFITHS REPORT IS CONFIDENTIAL AND NOT TO BE RELEASED WITHOUT AUTHORIZATION [address] [address] Draft The patient is determined to be discharged. I will write for a prednisone regimen for him with concurrent PPI medication for side of protection of the stomach. He will be offered to follow up with me in six weeks or so and should follow up additionally with his primary provider in [place], BRYN Davidson as he is part of the [facility]. His. DISCHARGE MEDICATIONS: Will include; pantoprazole 40 mg p.o. daily #90 and prednisone 10 mg tablets three p.o. daily x2 weeks, two p.o. daily x2 weeks, one p.o. daily x2 weeks and one every other day x2 weeks and discontinue, dispense 90, no refill. He will continue his usual medicines of gabapentin 400 mg p.o. t.i.d. for pain and dicyclomine 20 mg p.o. t.i.d. as needed for GI upset. DISCHARGE DIAGNOSIS: 1. Flare of Crohn's disease with small-bowel obstruction manifestations with prompt resolution nasogastric tube, IV fluids, and IV steroids. 2. Distant history of terminal ileal resection for Crohn's disease. 3. Substance abuse including methamphetamine episodically and ongoing tobacco use (smoking). MD BOB De Paz/TODDL /[id number] cc: BRYN Pritchett [place] Copies: PATIENT NAME: JASON PRESTON DISCHARGE SUMMARY DATE OF : 76 REPORT #: [id number] PHYSICIAN: ALISTAIR LANDERS MD PCP: NAOMIE GRIFFITHS REPORT IS CONFIDENTIAL AND NOT TO BE RELEASED WITHOUT AUTHORIZATION [facility] [address] [place] [address] [place] [address] Draft ~ PATIENT NAME: JASON PRESTON DISCHARGE SUMMARY DATE OF : 76 REPORT #: [id number] PHYSICIAN: ALISTAIR LANDERS MD PCP: NAOMIE GRIFFITHS REPORT IS CONFIDENTIAL AND NOT TO BE RELEASED WITHOUT AUTHORIZATION
--- NOTE | ~2021-06-13 | HP ---
[facility] [address], [place] [address] Draft ADMISSION DATE: 06/13/2021 REASON FOR ADMISSION: Small bowel obstruction likely related to Crohn's recurrence. HISTORY OF PRESENT ILLNESS: This 41-year-old white man was admitted to the hospital with abdominal pain, nausea, and vomiting, and a CT scan finding showing probable distal ileal obstruction. He has a longstanding history of Crohn disease. He has undergone terminal ileal resection many years ago in [place] while incarcerated and has been variably treated over time for his Crohn disease. He says that Humira, Remicade, and other conventional agents have been poorly tolerated by him for this. Every 3 to 6 months, he has a "flare" of Crohn disease for which, he was treated with steroids for a short course. At the time of admission, he is really on no medications other than dicyclomine. He last was on prednisone 20 mg daily, November 30, 2018, so far as I can tell. He does report gabapentin 400 mg p.o. t.i.d. as a medication. The patient does admit to illicit drug use including methamphetamine, possibly two times a week or possibly two times a month. It is uncertain. The patient does complain of lower abdominal pain as well as protracted nausea and vomiting. A nasogastric tube has been placed and he is improved in that regard. SOCIAL HISTORY: He lives in a camper in a friend's driveway. He recently became involved in employment in [employer]. REVIEW OF SYSTEMS: He denies any shortness of breath or chest pain. He has had no hematemesis or blood per rectum. Denies any lower extremity swelling or edema or pain. His pain is restricted to the abdomen, mostly in the lower abdomen. PHYSICAL EXAMINATION: GENERAL: A relatively thin, poorly nourished, white man, who looks to be in only mild PATIENT NAME: JASON PRESTON HISTORY AND PHYSICAL DATE OF : 76 REPORT #: [id number] PHYSICIAN: ALISTAIR LANDERS MD PCP: GEORGE GRIFFITHS REPORT IS CONFIDENTIAL AND NOT TO BE RELEASED WITHOUT AUTHORIZATION [facility] [address], [place] [address] Draft discomfort at this time. His BMI is 19 kg/meter squared. He is 5 feet 11 inches and 61.8 kg. HEENT: Mucous membranes are slightly dry. NECK: Trachea is midline. CHEST: Normal respiratory excursion. HEART: Regular without murmur. CHEST: Clear without wheeze or rhonchi. ABDOMEN: Nondistended and flat. He has mild tenderness diffusely. EXTREMITIES: No clubbing, cyanosis, or edema. There is no clinical evidence of DVT. LABORATORY DATA: Lab studies show white count 9.4, hematocrit 46.2, platelets 380,000. Electrolytes are normal, with creatinine 0.92, albumin 3.1, globulin 4.0, total protein 7.1, alkaline phosphatase 114. Liver enzymes otherwise normal. Total bilirubin 0.6. CT scan of the abdomen showed thickening of the ileum measuring about 12 cm. There were several loops of more proximal small bowel that were dilated up to 7.8 cm. There was a short segment wall thickening and hyperemia in the distal jejunum and sigmoid. Chest x-ray showed nasogastric tube tip in the stomach. I reviewed his films as well. ASSESSMENT: The patient has apparent flare of his Crohn disease with manifestation of small bowel obstruction. It is quite problematic that he is not on any maintenance therapy. I discussed this with him. He says mesalamine does not work. Biologic agents had been employed, had been met with series of side-effects, and in general, he maintains his situation with episodic treatment with prednisone. He is managed by BRYN Davidson. I believe she is in the [facility]. PLAN: He is admitted, given fluid resuscitation, pain control, and hydrocortisone intravenous administration will be started. I am hopeful and optimistic that his obstructive situation improves with the anti-inflammatories initiated. The patient refuses any sequential compression device stockings and since, by definition, inflammatory bowel patients are at increased risk of deep venous thrombosis. Will maintain heparin subcutaneously. He is currently on hydrocortisone 100 mg IV q.8 hours, likely to transition to prednisone and ultimately off. Concurrent administration of mesalamine may be a consideration despite it "not working" as long as he does not have side-effects from that otherwise. For now, improvement of the bowel obstructive process is the most important priority. PATIENT NAME: JASON PRESTON HISTORY AND PHYSICAL DATE OF : 76 REPORT #: [id number] PHYSICIAN: ALISTAIR LANDERS MD PCP: GEORGE GRIFFITHS REPORT IS CONFIDENTIAL AND NOT TO BE RELEASED WITHOUT AUTHORIZATION [facility] [address], [place] [address] Draft MD BOB De Paz/PEBBLES /[id number] cc: Dr. Jeff Griffiths Copies: ~ PATIENT NAME: JASON PRESTON HISTORY AND PHYSICAL DATE OF : 76 REPORT #: [id number] PHYSICIAN: ALISTAIR LANDERS MD PCP: GEORGE GRIFFITHS REPORT IS CONFIDENTIAL AND NOT TO BE RELEASED WITHOUT AUTHORIZATION
[~2021-06-13 11:00] MED LIST changes: +SERTRALINE HCL50 MG PO
--- OUTSIDE RECORDS SUMMARY | 2021-06-13 11:08 | XMS ---
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 PHONE: [phone] [facility] PHONE: [phone] GEORGE GRIFFITHS Physician Cloth Covered Helmet Puller Current PHONE: [phone] Kian has no Care Guidelines for this patient. Care History Medical/Surgical 10/19/2018 [facility] - [facility] CASE MANAGEMENT REFERRAL MADE- PATIENT DOES NOT HAVE A PCP AND HAS [employer] INSURANCE E.D. VISIT COUNT (12 MO.) 1 Elizabeth Hidalgo [address] [place] [address] CATH[facility] Concepcion TOTAL 3 NOTE: Visits indicate total known visits. ED/UCC VISIT TRACKING (12 MO.) 06/13/2021 11:01 [facility] [place] TYPE: Emergency COMPLAINT: - ABDOM PAIN, CRAMPING 09/17/2020 09:34 [facility] [place] TYPE: Emergency COMPLAINT: - Abdominal pain 07/18/2020 15:26 [facility] TYPE: Emergency DIAGNOSES: - Unspecified intestinal obstruction, unspecified as to partial versus complete obstruction - Abdominal Pain - Crohn's disease of large intestine with intestinal obstruction INPATIENT VISIT TRACKING (12 MO.) 09/17/2020 09:34 [facility] [place] TYPE: Medical Surgical COMPLAINT: - ABD PAIN, CHRONIC PAIN, CHRON'S DX. H/O DEPRESSION, METH ABUSE DIAGNOSES: 0. Unspecified abdominal pain 1. Crohn's disease, unspecified, without complications 2. Other stimulant abuse, uncomplicated 3. Opioid abuse, uncomplicated 4. Cannabis abuse, uncomplicated 5. Nicotine dependence, cigarettes, uncomplicated 6. Emphysema, unspecified 7. Allergy status to narcotic agent 07/18/2020 15:26 [facility] [place] TYPE: Internal Medicine DIAGNOSES: - Crohn's disease of large intestine with intestinal obstruction - Crohn's disease of small intestine with unspecified complications - Unspecified injury of left wrist, hand and finger(s), initial encounter - Generalized abdominal pain - Unspecified intestinal obstruction, unspecified as to partial versus complete obstruction [email or web address]
[2021-06-13] MEDS ORDERED: GABAPENTIN400 MG PO (12:14)
[2021-06-13] MEDS ORDERED: DICYCLOMINE HCL20 MG PO (17:24)
[2021-06-14] MEDS ORDERED: PREDNISONE10 MG PO (15:55)
[2021-06-14] MEDS ORDERED: PANTOPRAZOLE SO40 MG PO (15:55)
== END 2021-06-14 16:25 | disposition home or self-care (01) | DRG 387 ==
LOC: ED 11:00 → MS 11:02
PROVIDERS: ADMIT Surgery; ATTEND Surgery
DX: K50.912 Crohn's disease, unspecified, with intestinal obstruction (principal); Z20.822 Contact with and (suspected) exposure to COVID-19; F15.10 Other stimulant abuse, uncomplicated; F41.9 Anxiety disorder, unspecified; F32.A Depression, unspecified; M79.7 Fibromyalgia; F17.210 Nicotine dependence, cigarettes, uncomplicated; Z90.49 Acquired absence of other specified parts of digestive tract; Z88.5 Allergy status to narcotic agent; Z88.8 Allergy status to other drugs, medicaments and biological substances; Z79.899 Other long term (current) drug therapy
CPT/HCPCS: 43752; 71045; 74018; 74177; 80053; 83690; 84134; 85025; 96376; 99285-25; C9803; G0378; J0131; J1170; J1644; J1720; J2060; J2405; J7030; J7121; Q9967; U0003

== ENCOUNTER 2021-06-28 09:34 | Emergency (ER) | payer OTHER ==
[~2021-06-28] VITALS: Ht 180.3 cm; Wt 61.7 kg
[~2021-06-28 09:34] MED LIST changes: +GABAPENTIN400 MG PO; +PANTOPRAZOLE SO40 MG PO
--- OUTSIDE RECORDS SUMMARY | 2021-06-28 09:38 | XMS ---
PreManage Notification: JASON PRESTON Security Lead Recoverer Events No recent Security Events currently on file CRITERIA MET - Group Notification - PDMP - [facility] - 2 Visits in 30 Days CARE PROVIDERS [place] MEDICAL Surgery [employer]. PHONE: [phone] [facility] PHONE: [phone] GEORGE GRIFFITHS Physician Automatic Folder Seamer Current PHONE: [phone] Kian has no Care Guidelines for this patient. E.D. VISIT COUNT (12 MO.) 1 [facility] 1 [facility] 2 CATHY Concepcion TOTAL 4 NOTE: Visits indicate total known visits. ED/UCC VISIT TRACKING (12 MO.) 06/28/2021 09:35 [facility] [place] TYPE: Emergency COMPLAINT: - ABDOMINAL PAIN, VOMITING 06/13/2021 11:01 [facility] [place] TYPE: Emergency COMPLAINT: - ABDOM PAIN, CRAMPING 09/17/2020 09:34 Elizabeth [facility] TYPE: Emergency COMPLAINT: - Abdominal pain [facility] DIAGNOSES: - Unspecified intestinal obstruction, unspecified as to partial versus complete obstruction - Abdominal Pain - Crohn's disease of large intestine with intestinal obstruction INPATIENT VISIT TRACKING (12 MO.) 06/13/2021 19:47 CATHY Townsend TYPE: Medical Surgical COMPLAINT: - SBO DIAGNOSES: - Nicotine dependence, cigarettes, uncomplicated - Unspecified intestinal obstruction, unspecified as to partial versus complete obstruction - Fibromyalgia - DEPRESSION, UNSPECIFIED - Anxiety disorder, unspecified - Allergy status to other drugs, medicaments and biological substances - Allergy status to narcotic agent - Crohn's disease, unspecified, with intestinal obstruction - Other detention (current) drug therapy - Other stimulant abuse, uncomplicated - Acquired absence of other specified parts of digestive tract 09/17/2020 09:34 [facility] Tereza [place] TYPE: Medical Surgical COMPLAINT: - ABD PAIN, CHRONIC PAIN, CHRON'S DX. H/O DEPRESSION, METH ABUSE DIAGNOSES: 0. Unspecified abdominal pain 1. Crohn's disease, unspecified, without complications 2. Other stimulant abuse, uncomplicated 3. Opioid abuse, uncomplicated 4. Cannabis abuse, uncomplicated 5. Nicotine dependence, cigarettes, uncomplicated 6. Emphysema, unspecified 7. Allergy status to narcotic agent 07/18/2020 [facility] TYPE: Internal Medicine DIAGNOSES: - Crohn's disease of large intestine with intestinal obstruction - Crohn's disease of small intestine with unspecified complications - Unspecified injury of left wrist, hand and finger(s), initial encounter - Generalized abdominal pain - Unspecified intestinal obstruction, unspecified as to partial versus complete obstruction [email or web address]
[2021-06-28] MEDS ORDERED: PREDNISONE20 MG PO (16:11)
[2021-06-28] MEDS ORDERED: HYDROCODON-ACE1 EA11 PO (16:11)
[2021-06-28] MEDS ORDERED: NICOTINE PATCH1 EACH TD (16:11)
[2021-06-28] MEDS ORDERED: ONDANSETRON ODT8 MG PO (16:11)
== END 2021-06-28 16:48 | disposition home or self-care (01) ==
LOC: ED 09:34
DX: K50.90 Crohn's disease, unspecified, without complications (principal); F17.200 Nicotine dependence, unspecified, uncomplicated; Z88.5 Allergy status to narcotic agent; Z88.8 Allergy status to other drugs, medicaments and biological substances; Z79.899 Other long term (current) drug therapy; Z79.52 Long term (current) use of systemic steroids; Z20.822 Contact with and (suspected) exposure to COVID-19
CPT/HCPCS: 74177; 80053; 81001; 83690; 83735; 85025; 85610; 96375; 96376; 99284-25; C9803; J1170; J2405; J7030; J7512; Q9967; U0003

== ENCOUNTER 2021-09-30 04:35 | Emergency (ER) | payer SELFPAY ==
[~2021-09-30] VITALS: Ht 180.3 cm; Wt 61.7 kg
[~2021-09-30 04:35] MED LIST changes: +HYDROCODON-ACE1 EA11 PO; +NICOTINE PATCH1 EACH TD; +ONDANSETRON ODT8 MG PO
--- OUTSIDE RECORDS SUMMARY | 2021-09-30 04:38 | XMS ---
PreManage Notification: JASON PRESTON Security Trouble Shooter Events No recent Security Events currently on file CRITERIA MET - Group Notification - [facility] CARE PROVIDERS [facility] [employer]. PHONE: [phone] [facility] [employer] PHONE: [phone] GEORGE GRIFFITHS Physician Freight Handler Current PHONE: Unknown Kian has no Care Guidelines for this patient. E.D. VISIT COUNT (12 MO.) [address] [facility] [address] [facility]go TOTAL 3 NOTE: Visits indicate total known visits. ED/UCC VISIT TRACKING (12 MO.) 09/30/2021 04:36 [facility] [place] TYPE: Emergency COMPLAINT: - ABD PAIN 06/28/2021 09:35 [facility] [place] TYPE: Emergency COMPLAINT: - ABDOMINAL PAIN, VOMITING DIAGNOSES: - Allergy status to narcotic agent - Crohn's disease, unspecified, without complications - Nausea with vomiting, unspecified - Allergy status to other drugs, medicaments and biological substances - Nicotine dependence, unspecified, uncomplicated - Other intermediate (current) drug therapy - [facility] (current) use of systemic steroids 06/13/2021 11:01 [facility] [place] TYPE: Emergency COMPLAINT: - ABDOM PAIN, CRAMPING INPATIENT VISIT TRACKING (12 MO.) 06/13/2021 19:47 [facility] [place] TYPE: Medical Surgical COMPLAINT: - SBO DIAGNOSES: - Nicotine dependence, cigarettes, uncomplicated - Unspecified intestinal obstruction, unspecified as to partial versus complete obstruction - Fibromyalgia - DEPRESSION, UNSPECIFIED - Anxiety disorder, unspecified - Allergy status to other drugs, medicaments and biological substances - Allergy status to narcotic agent - Crohn's disease, unspecified, with intestinal obstruction - Other medical terminologist (current) drug therapy - Other stimulant abuse, uncomplicated - Acquired absence of other specified parts of digestive tract [email or web address]
[2021-09-30] MEDS ORDERED: PREDNISONE20 MG PO (06:43)
[2021-09-30] MEDS ORDERED: HYDROCODON-ACE1 EA10 PO (06:43)
[2021-09-30] MEDS ORDERED: DICYCLOMINE HCL20 MG PO (06:53)
== END 2021-09-30 07:04 | disposition home or self-care (01) ==
LOC: ED 04:35
DX: K50.90 Crohn's disease, unspecified, without complications (principal); F17.200 Nicotine dependence, unspecified, uncomplicated; Z88.5 Allergy status to narcotic agent; Z88.8 Allergy status to other drugs, medicaments and biological substances; Z79.899 Other long term (current) drug therapy
CPT/HCPCS: 36415; 74177; 80053; 81001; 83690; 85025; 96375; 99284-25; J1170; J2405; J7030; J7512; Q9967

== ENCOUNTER 2021-11-13 23:11 | Emergency (ER) | payer OTHER ==
[~2021-11-13] VITALS: Ht 180.3 cm; Wt 71.6 kg
[~2021-11-13 23:11] MED LIST changes: +HYDROCODON-ACE1 EA10 PO
--- OUTSIDE RECORDS SUMMARY | 2021-11-13 23:12 | XMS ---
PreManage Notification: JASON PRESTON Security Boiler Room Operator Events No recent Security Events currently on file CRITERIA MET - Group Notification - [facility] CARE PROVIDERS [facility] [employer]. PHONE: [phone] [facility] [employer] PHONE: [phone] GEORGE GRIFFITHS Physician Ground School Instructor Current PHONE: Unknown Kian has no Care Guidelines for this patient. E.D. VISIT COUNT (12 MO.) [address] [facility] H[facility]go TOTAL 4 NOTE: Visits indicate total known visits. ED/UCC VISIT TRACKING (12 MO.) 11/13/2021 23:11 [facility]olson [place] TYPE: Emergency COMPLAINT: - VOMITING, BODY ACHES 09/30/2021 04:36 [facility]olson [place] TYPE: Emergency COMPLAINT: - ABD PAIN DIAGNOSES: - Allergy status to narcotic agent - Other long filler cigar roller machine (current) drug therapy - Nicotine dependence, unspecified, uncomplicated - Crohn's disease, unspecified, without complications - Allergy status to other drugs, medicaments and biological substances - Unspecified abdominal pain 06/28/2021 09:35 [facility] [place] TYPE: Emergency COMPLAINT: - ABDOMINAL PAIN, VOMITING DIAGNOSES: - Allergy status to narcotic agent - Crohn's disease, unspecified, without complications - Nausea with vomiting, unspecified - Allergy status to other drugs, medicaments and biological substances - Nicotine dependence, unspecified, uncomplicated - Other detention (current) drug therapy - penitentiary (current) use of systemic steroids 06/13/2021 11:01 [facility]olson [place] TYPE: Emergency COMPLAINT: - ABDOM PAIN, CRAMPING INPATIENT VISIT TRACKING (12 MO.) 06/13/2021 19:[address] [facility] [place] TYPE: Medical Surgical COMPLAINT: - SBO [...] of other specified parts of digestive tract [email or web address]
[2021-11-14] MEDS ORDERED: ONDANSETRON ODT8 MG PO (00:56)
[2021-11-14] MEDS ORDERED: HYDROCODON-ACE1 EA10 PO (00:56)
[2021-11-14] MEDS ORDERED: PREDNISONE20 MG PO (00:56)
== END 2021-11-14 01:29 | disposition home or self-care (01) ==
LOC: ED 23:11
DX: K50.90 Crohn's disease, unspecified, without complications (principal); F15.10 Other stimulant abuse, uncomplicated; F17.200 Nicotine dependence, unspecified, uncomplicated; Z88.5 Allergy status to narcotic agent; Z88.8 Allergy status to other drugs, medicaments and biological substances; Z79.899 Other long term (current) drug therapy
CPT/HCPCS: 36415; 74177; 80053; 81001; 83690; 85025; 96375; 99284-25; A9270; J1170; J2405; J2930; J7030; Q9967

== ENCOUNTER 2022-02-17 20:16 | Emergency (ER) | payer OTHER ==
[~2022-02-17] VITALS: Ht 180.3 cm; Wt 71.2 kg
--- OUTSIDE RECORDS SUMMARY | 2022-02-17 20:18 | XMS ---
PreManage Notification: JASON PRESTON Security Field Service Representative Events No recent Security Events currently on file CRITERIA MET - Group Notification CARE PROVIDERS GEORGE GRIFFITHS Physician Insurance Office Supervisor Current PHONE: Unknown Kian has no Care Guidelines for this patient. EMani VISIT COUNT (12 MO.) 5 CATHY Concepcion TOTAL 5 NOTE: Visits indicate total known visits. ED/UCC VISIT TRACKING (12 MO.) 02/17/2022 20:17 [facility] [place] TYPE: Emergency COMPLAINT: - ABD PAIN 11/13/2021 23:11 [facility] [place] TYPE: Emergency COMPLAINT: - VOMITING, BODY ACHES DIAGNOSES: - Nausea with vomiting, unspecified - Other stimulant abuse, uncomplicated - Allergy status to other drugs, medicaments and biological substances - Crohn's disease, unspecified, without complications - Other terminal worker (current) drug therapy - Nicotine dependence, unspecified, uncomplicated - Allergy status to narcotic agent 09/30/2021 04:36 [facility] [place] TYPE: Emergency COMPLAINT: - ABD PAIN DIAGNOSES: - Allergy status to narcotic agent - Other nursing home (current) drug therapy - Nicotine dependence, unspecified, [...] - Nicotine dependence, unspecified, uncomplicated - Other nursing home (current) drug therapy - terminal operations supervisor (current) use of systemic steroids - Contact with and (suspected) exposure to COVID-19 06/13/2021 11:01 [facility] [place] TYPE: Emergency COMPLAINT: - ABDOM PAIN, CRAMPING INPATIENT VISIT TRACKING (12 MO.) 06/13/2021 19:47 [facility] [place] TYPE: Medical Surgical COMPLAINT: - SBO DIAGNOSES: - Nicotine dependence, cigarettes, uncomplicated - Depression, unspecified - Unspecified intestinal obstruction, unspecified as to partial versus complete obstruction - Fibromyalgia - DEPRESSION, UNSPECIFIED - Anxiety disorder, unspecified - Contact with and (suspected) exposure to COVID-19 - Allergy status to other drugs, medicaments and biological substances - Allergy status to narcotic agent - Crohn's disease, unspecified, with intestinal obstruction - Other nursing home (current) drug therapy - Other stimulant abuse, uncomplicated - Acquired absence of other specified parts of digestive tract [email or web address]
[2022-02-17] MEDS ORDERED: PREDNISONE20 MG PO (23:23)
[2022-02-17] MEDS ORDERED: ONDANSETRON ODT4 MG PO (23:24)
== END 2022-02-18 00:01 | disposition home or self-care (01) ==
LOC: ED 20:16
DX: K50.018 Crohn's disease of small intestine with other complication (principal); F17.200 Nicotine dependence, unspecified, uncomplicated; Z88.5 Allergy status to narcotic agent; Z88.8 Allergy status to other drugs, medicaments and biological substances; Z79.899 Other long term (current) drug therapy; Z79.52 Long term (current) use of systemic steroids
CPT/HCPCS: 36415; 74177; 80053; 81001; 83690; 83735; 85025; 96361; 96375; 99284-25; A9270; J1170; J2405; J2930; J3010; J7121; Q9967

== ENCOUNTER 2022-04-21 10:05 | Inpatient (IN) | payer OTHER ==
[~2022-04-21] VITALS: Ht 180.3 cm; Wt 66.6 kg
[~2022-04-21 10:05] MED LIST changes: +ONDANSETRON ODT4 MG PO
--- OUTSIDE RECORDS SUMMARY | 2022-04-21 10:08 | XMS ---
PreManage Notification: JASON PRESTON Security Ironworker Apprentice Events No recent Security Events currently on file CRITERIA MET - Group Notification CARE PROVIDERS GEORGE GRIFFITHS Physician Director Learning And Development Current PHONE: Unknown Kian has no Care Guidelines for this patient. EMani VISIT COUNT (12 MO.) 6 CATHY Concepcion TOTAL 6 NOTE: Visits indicate total known visits. ED/UCC VISIT TRACKING (12 MO.) 04/21/2022 10:06 [facility] [place] TYPE: Emergency COMPLAINT: - ABD PAIN 02/17/2022 20:17 [facility] [place] TYPE: Emergency COMPLAINT: - ABD PAIN DIAGNOSES: - supervisor intermediates (current) use of systemic steroids - Unspecified abdominal pain - Allergy status to narcotic agent - Allergy status to other drugs, medicaments and biological substances - Nicotine dependence, unspecified, uncomplicated - Crohn's disease of small intestine with other complication - Other fpc (current) drug therapy 11/13/2021 23:11 [facility] [place] TYPE: Emergency COMPLAINT: - VOMITING, BODY ACHES DIAGNOSES: - Allergy status to narcotic agent - Other supervisor intermediates (current) drug therapy - Allergy status to other drugs, medicaments and biological substances - Nausea with vomiting, unspecified - Nicotine dependence, unspecified, uncomplicated - Crohn's disease, unspecified, without complications - Other stimulant abuse, uncomplicated 09/30/2021 04:36 [facility] [place] TYPE: Emergency COMPLAINT: - ABD PAIN DIAGNOSES: - Allergy status to other drugs, medicaments and biological substances - Nicotine dependence, unspecified, uncomplicated - Allergy status to narcotic agent - Unspecified abdominal pain - Crohn's disease, unspecified, without complications - Other fpc (current) drug therapy 06/28/2021 09:35 [facility] [place] TYPE: Emergency COMPLAINT: - ABDOMINAL PAIN, VOMITING DIAGNOSES: - supervisor intermediates (current) use of systemic steroids - Nicotine dependence, unspecified, uncomplicated - Nausea with vomiting, unspecified - Allergy status to narcotic agent - Contact with and (suspected) exposure to COVID-19 - Other fpc (current) drug therapy - Allergy status to other drugs, medicaments and biological substances - Crohn's disease, unspecified, without complications 06/13/2021 11:01 [facility] [place] TYPE: Emergency COMPLAINT: - ABDOM PAIN, CRAMPING INPATIENT VISIT TRACKING (12 MO.) 06/13/2021 19:[address] [facility] [place] TYPE: Medical Surgical COMPLAINT: - SBO DIAGNOSES: - Contact with and (suspected) exposure to COVID-19 - DEPRESSION, UNSPECIFIED - Other stimulant abuse, uncomplicated - Unspecified intestinal obstruction, unspecified as to partial versus complete obstruction - Crohn's disease, unspecified, with intestinal obstruction - Nicotine dependence, cigarettes, uncomplicated - Allergy status to other drugs, medicaments and biological substances - Anxiety disorder, unspecified - Acquired absence of other specified parts of digestive tract - Fibromyalgia - Other fpc (current) drug therapy - Depression, unspecified - Allergy status to narcotic agent [email or web address]
--- NOTE | 2022-04-21 14:52 | NUR ---
REPORT RECEIVED FROM CLINICAL STAFF EDUCATOR AND AWAITING PT. ARRIVAL.
--- NOTE | 2022-04-21 15:05 | NUR ---
PT. ARRIVED VIA STRETCHER. NG TUBE CONNECTED TO LOW INT. SUCTION. PT. IS ALERT AND ORIENTED. ASSESSMENT AND INTAKE COMPLETED. BELONGINGS KEPT AT BEDSIDE. IV WNL. IVF ADMINISTERED. DISCUSSED SAFETY, MEDS, POC. LEFT RESTING WITH CALL LIGHT IN REACH.
--- NOTE | 2022-04-21 16:00 | NUR ---
Attempted to see pt for CM assessment. Pt states, "you can't help me", and refuses CM assessment.
--- NOTE | 2022-04-21 16:01 | NUR ---
URINE SAMPLE COLLECTED. HE REPORTS PAIN IS TOLERABLE AT THIS TIME. ALSO STATES HE HAS A HX OF ANXIETY. THERAPEUTIC COMMUNICATION USED. PT. STATES HE FEELS FRUSTRATED. WILL CONTINUE TO MONITOR.
--- NOTE | 2022-04-21 16:30 | NUR ---
PT. USED CALL LIGHT AND STATES HE IS PULLING HIS NG TUBE. PT REMOVED WHEN THIS NURSE ARRIVED. EXPLAINED PURPOSE, RISK AND TX PLAN. PT. STATES HE WANTS TO GO HOME AND WILL "JUST TAKE PREDNISONE LIKE HE ALWAYS DOES". CALLED. IN THE ROOM TO TALK TO PT. PT. REFUSES TO STAY. PT. SIGNED AMA FORM WITH CHARGE. REFUSED VITALS. IV REMOVED WITH CATH INTACT. PT. LEFT WITH ALL BELONGINGS AND WALKED OUT BY THIS NURSE.
--- NOTE | 2022-04-26 17:56 | HP ---
[facility] [address], [place] [address] Signed ADMISSION DATE: 04/21/2022 REASON FOR ADMISSION: Acute on chronic small-bowel obstruction, underlying Crohn disease. HISTORY OF PRESENT ILLNESS: This 42-year-old homeless white man lives approximately 20 miles out of town in [place] car. He is known to me from the past having been admitted to the hospital in May 2021 for flare of Crohn disease with small bowel obstruction which resolved rather promptly with nasogastric tube placement, IV fluids and so forth. The patient has an underlying drug addiction to methamphetamine, which he continues to use unfortunately. He is aware, however, that such use can definitely exacerbate issues with bowel function, particularly as a cause of splanchnic vasoconstriction and does note that when he is avoiding using methamphetamine then his abdominal symptoms are much improved. He presented to the emergency room, was thoroughly evaluated by Dr. Aguilar with findings of abdominal pain, mild tenderness and distention and a CT scan which showed an impressively dilated segments of small bowel and stricturing typical of skip lesions of Crohn disease. The patient has had placement of a nasogastric tube with little output from it. His past medical history in addition to Crohn disease does include bowel resection x2 including terminal ileum in the distant past. He is unfortunately quite noncompliant with medical care and although previously had a midlevel provider in the [facility]. No longer sees anybody based on his homelessness he says. SOCIAL HISTORY: He lives alone. He is homeless as described. His father who was a classmate of mine in high school now lives in [place]. REVIEW OF SYSTEMS: He denies any shortness of breath or actual chest pain. He has had no hematemesis or blood per rectum. He has had nausea and some vomiting. PHYSICAL EXAMINATION: GENERAL: Relatively thin white man who looks older than stated age of 42 years. Electronically Signed By: ALISTAIR LANDERS MD 04/26/22 1833 PATIENT NAME: JASON PRESTON HISTORY AND PHYSICAL DATE OF : 76 REPORT #: [id number] PHYSICIAN: ALISTAIR LANDERS MD PCP: GEORGE GRIFFITHS REPORT IS CONFIDENTIAL AND NOT TO BE RELEASED WITHOUT AUTHORIZATION [facility] [address], [place] [address] Signed HEENT: Trachea is midline. Mucous membranes are slightly dry. CHEST: Shows normal respiratory excursion without tachypnea. HEART: Regular rate. ABDOMEN: Mildly distended. There is mild tenderness in the right mid abdomen. A midline incision is well healed. EXTREMITIES: Show no clubbing, cyanosis, or edema. LABORATORY STUDIES: Show white count of 9.7, hematocrit 46.5, platelets 269,000. Electrolytes normal. Creatinine is 0.93, bicarb is 25. CT scan was reviewed in detail, previously noted above. ASSESSMENT: The patient has longstanding chronic bowel obstruction related to the stricture from Crohn disease and now has acute on chronic obstruction clinically speaking. The loops of bowel that are dilated quite markedly dilated and impressive in their size. Whether or not operative decompression will be required remains to be seen. For now, we will initiate intravenous steroids, IV fluids, side of protection of the stomach and maintenance of nasogastric tube. He has stated in the past and continues to state in the present that typical medications for management of Crohn disease as an outpatient have been unsuccessful or not well tolerated, this includes mesalamine which he says "does not work" and side effects with biologic agents as he has described. MD BOB De Paz/MODL /[id number] cc: Dr. Aguilar Electronically Signed By: ALISTAIR LANDERS MD 04/26/22 1756 PATIENT NAME: JASON PRESTON HISTORY AND PHYSICAL DATE OF : 76 REPORT #: [id number] PHYSICIAN: ALISTAIR LANDERS MD PCP: GOERGE GRIFFITHS REPORT IS CONFIDENTIAL AND NOT TO BE RELEASED WITHOUT AUTHORIZATION [facility] [address] [place] [address] Signed Copies: ~ Electronically Signed By: ALISTAIR LANDERS MD 04/26/22 1756 PATIENT NAME: JASON PRESTON HISTORY AND PHYSICAL DATE OF : 76 REPORT #: [id number] PHYSICIAN: ALISTAIR LANDERS MD PCP: GEORGE GRIFFITHS REPORT IS CONFIDENTIAL AND NOT TO BE RELEASED WITHOUT AUTHORIZATION
== END 2022-04-21 16:40 | disposition left against medical advice (07) | DRG 387 ==
LOC: ED 10:05 → MS 14:03
PROVIDERS: ADMIT Surgery; ATTEND Surgery
DX: K50.012 Crohn's disease of small intestine with intestinal obstruction (principal); Z59.00 Homelessness unspecified; Z20.822 Contact with and (suspected) exposure to COVID-19
CPT/HCPCS: 36415; 74018; 74177; 80053; 85025; 86140; 87502; 96361; 96375; 96376; 99285-25; C9803; J1170; J1720; J2405; J2930; J7030; J7121; Q9967; U0003

== ENCOUNTER 2022-06-27 15:57 | Inpatient (IN) | payer OTHER ==
[~2022-06-27] VITALS: Ht 180.3 cm; Wt 65.7 kg
--- OUTSIDE RECORDS SUMMARY | 2022-06-27 16:00 | XMS ---
PreManage Notification: JASON PRESTON Security Advertising Rep Events No recent Security Events currently on file CRITERIA MET - Group Notification - [facility] - 2 Visits in 30 Days CARE PROVIDERS GEORGE GRIFFITHS Physician Truck Trailer Mechanic Current PHONE: Unknown Kian has no Care Guidelines for this patient. E.Trixie VISIT COUNT (12 MO.) 7 [facility] TOTAL 7 NOTE: Visits indicate total known visits. ED/UCC VISIT TRACKING (12 MO.) 06/27/2022 15:58 [facility] [place] TYPE: Emergency COMPLAINT: - ABD PAIN 06/15/2022 13:02 [facility] [place] TYPE: Emergency COMPLAINT: - ABD PAIN 04/21/2022 10:06 [facility] [place] TYPE: Emergency COMPLAINT: - ABD PAIN 02/17/2022 20:17 [facility] [place] TYPE: Emergency COMPLAINT: - ABD PAIN DIAGNOSES: - group home (current) use of systemic steroids - Unspecified abdominal pain - Allergy status to narcotic agent - Allergy status to other drugs, medicaments and biological substances - Nicotine dependence, unspecified, uncomplicated - Crohn's disease of small intestine with other complication - Other senior care (current) drug therapy 11/13/2021 23:11 [facility] [place] TYPE: Emergency COMPLAINT: - VOMITING, BODY ACHES DIAGNOSES: - Allergy status to narcotic agent - Other roving changer (current) drug therapy - Allergy status to [...] Crohn's disease, unspecified, without complications - Other roving changer (current) drug therapy 06/28/2021 09:35 [facility] [place] TYPE: Emergency COMPLAINT: - ABDOMINAL PAIN, VOMITING DIAGNOSES: - credit assessment analyst (current) use of systemic steroids - Nicotine dependence, unspecified, uncomplicated - Nausea with vomiting, unspecified - Allergy status to narcotic agent - Contact with and (suspected) exposure to COVID-19 - Other roving changer (current) drug therapy - Allergy status to other drugs, medicaments and biological substances - Crohn's disease, unspecified, without complications INPATIENT VISIT TRACKING (12 MO.) 04/21/2022 14:03 [facility] [place] TYPE: Medical Surgical COMPLAINT: - SBO AND CROHNS DISEASE DIAGNOSES: - Unspecified intestinal obstruction, unspecified as to partial versus complete obstruction - Crohn's disease of small intestine with intestinal obstruction - Homelessness unspecified - Contact with and (suspected) exposure to COVID-19 [email or web address]
--- NOTE | 2022-06-28 04:00 | NUR ---
PT TO FLOOR VIA WC FROM ED. REPORT RECEIVED. PT ALERT AND ORIENTED. ABLE TO TRANSFER SELF TO BED. REPORTS ABD PAIN 01/30. PRN FOR PAIN ADMIN PER ORDER. PT DENIES NAUSEA. BOWEL TONES HYPOACTIVE. PT REPORTS FLATUS. SCHEDULED MEDS ADMIN PER ORDER. IV ABX INFUSING WNL. WARM COMPRESS PROVIDED FOR ABD. PT ORIENTED TO ROOM AND NURSE CALL LIGHT. DENIES QUESTIONS OR CONCERNS AT THIS TIME.
--- NOTE | 2022-06-28 07:00 | NUR ---
PT REPORTS ABD PAIN 7/10 AND NAUSEA. PRN FOR PAIN AND NAUSEA ADMIN PER ORDER. NO FURTHER NEEDS. CALL LIGHT IN REACH.
--- NOTE | 2022-06-28 07:18 | CONS ---
[facility] [address], [place] [address] Signed DATE OF CONSULTATION: 06/28/2022 CHIEF COMPLAINT: Generalized abdominal pain. HISTORY OF PRESENT ILLNESS: Faheem is a 42-year-old gentleman, who noticed Crohn's symptoms at the early age of 10. He was formally diagnosed at age 16 [address] Myers. He tells me that he has 3 children, all living in [place]. His ex- apparently lives in [place], [place]. It sounds like Faheem is born and raised in [facility]. He is here now and homeless. He said the water pump on his car is not working. He said it is too cold to fix it currently. He does use methamphetamines and marijuana. He told me he has been on every drug there is for Crohn's disease including Remicade. Apparently, Remicade bothered his red blood cell count and it was discontinued. Interestingly, his primary care provider is 35 to 45 minutes away in [place], [place]. Consequently, he takes no medications. He said he has had a other previously. He had small bowel resection twice back in 2007. He said he really cannot push much when he has a bowel movement. He has a sense that maybe he has another hole in his bowel. Apparently, he comes to our ER frequently. He generally receives pain medication and leaves AMA. On this occasion, I think he is a little concerned, so we decided that he would stay. Although, he refused his antibiotics and Solu-Medrol until he got pain medication. He is now on our medical floor. I have been asked to admit him as a general surgeon on-call. PAST MEDICAL HISTORY: Crohn's disease with symptoms at age 10 but formally diagnosed at age 16. Fibromyalgia, anxiety and depression. PAST SURGICAL HISTORY: Small bowel resections x2 in 2007, left upper extremity fracture repair with metal remaining. SOCIAL HISTORY: He does use meth and marijuana. He is single and homeless and has 3 children, all living in [place]. His ex- is in [place], [place]. His car is currently broke down, so he has to walk everywhere. [facility] here in [place], [place]. His primary care provider is Naomie hurley in [place], [place]. He said he spent some time in long term. FAMILY HISTORY: Maternal grandfather had Crohn disease. REVIEW OF SYSTEMS: Electronically Signed By: BLANCA AGUILERA MD 06/28/22 0718 PATIENT NAME: FAHEEM PRESTON CONSULTATION DATE OF : 76 REPORT #: [id number] PHYSICIAN: BLANCA AGUILERA MD PCP: NAOMIE GRIFFITHS REPORT IS CONFIDENTIAL AND NOT TO BE RELEASED WITHOUT AUTHORIZATION [facility] [address], [place] [address] Signed He had 10 systems reviewed and there is really nothing new to add other than the Crohn's . ALLERGIES: Morphine, Demerol, and Remicade causes red blood cell count to decrease. MEDICATIONS: None PHYSICAL EXAMINATION: VITAL SIGNS: Blood pressure is 123/67, his heart rate is 73, respiratory rate is 18, temperature is 98.9. He is 100% on room air. He is 5 feet 11 inches and 67 kg. GENERAL: Faheem is a 42-year-old gentleman who generally appears thin and homeless and disheveled. Although, he is a pretty good historian and has pretty good detail. LUNGS: Clear to auscultation bilaterally. HEART: Regular rate and rhythm without murmurs. ABDOMEN: Generally soft and flat, but it is a little dilated on the right side without any peritoneal signs or symptoms. LABORATORY DATA: His white blood cell count is 11, hemoglobin 15, neutrophils 73. Electrolytes unremarkable. COVID was negative. His alkaline phosphatase is up at 122. Albumin is 3.2. The meth and marijuana were positive. RADIOGRAPHIC STUDIES: CT scan is reviewed, the report and the images and he does have skip lesions in the small bowel, particularly his terminal ileum. He has a dilated loop of small bowel in his lower abdomen and proximal that may be a mural abscess. He may also have a small stricture in the proximal small bowel. 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 ASSESSMENT AND PLAN: Faheem is a 42-year-old gentleman who presents with ongoing Crohn's disease. Unfortunately, he has not been treated. He has been admitted and we started his 1st dose of steroids. He is going to receive some Rocephin and Flagyl, but I think we will probably end up holding that and just use the steroids at this time. He said the steroids he used is helping him quite a bit. He has expressed understanding and would like to proceed. Blanca Aguilera MD Electronically Signed By: BLANCA AGUILERA MD 06/28/22 0718 PATIENT NAME: FAHEEM PRESTON CONSULTATION DATE OF : 76 REPORT #: [id number] PHYSICIAN: BLANCA AGUILERA MD PCP: NAOMIE GRIFFITHS REPORT IS CONFIDENTIAL AND NOT TO BE RELEASED WITHOUT AUTHORIZATION [address] [place] [address] Signed ALB/MODL /[id number] cc: MD Naomie Murrieta PA Copies: BLANCA AGUILERA MD ~ Electronically Signed By: BLANCA AGUILERA MD 06/28/22 0718 PATIENT NAME: FAHEEM PRESTON CONSULTATION DATE OF : 76 REPORT #: [id number] PHYSICIAN: BLANCA AGUILERA MD PCP: NAOMIE GRIFFITHS REPORT IS CONFIDENTIAL AND NOT TO BE RELEASED WITHOUT AUTHORIZATION
--- NOTE | 2022-06-28 07:23 | NUR ---
REPORT FROM MYRNA VANEGAS.
--- NOTE | 2022-06-28 07:42 | NUR ---
MORNING ASSESSMENT DONE. PATIENT IS CONCERNED THAT HE IS NOT BEING GIVEN A HIGH ENOUGH DOSE OF STEROIDS AND PLANS TO DISCUSS WITH DR. AGUILERA. PATIENT HAS HYPOACTIVE BOWEL TONES, REPORTS 5/10 LOWER ABDOMEN PAIN. OLD ABDOMINAL SCARS ARE EVIDENT. PATIENT REPORTS SEVERE ANXIETY REGARDING HIS MEDICAL CONDITION. NO NAUSEA NOTED AT THIS TIME.
--- NOTE | 2022-06-28 09:18 | NUR ---
PATIENT GIVEN 1MG OF IV DILAUDID FOR 7/10 LOWER ABDOMEN PAIN. IVF CHANGED TO D5LR@100. PATIENT DENIES OTHER NEEDS AND IS RESTING IN BED.
--- NOTE | 2022-06-28 10:36 | NUR ---
PATIENT IS RESTING IN BED, REPORTS REDUCED PAIN OF 5/10.
--- NOTE | 2022-06-28 11:05 | NUR ---
PATIENT GIVEN 1MG OF IV DILAUDID FOR 5/10 ABD PAIN. PATIENT ENDORSES THAT HE IS STARTING TO FEEL A LITTLE BETTER.
--- NOTE | 2022-06-28 12:23 | NUR ---
PATIENT RESTING IN BED, PAIN IS 5/10, DENIES OTHER NEEDS. PATIENT UP TO VOID X1
--- NOTE | 2022-06-28 13:10 | NUR ---
MED REC COMPLETE
--- NOTE | 2022-06-28 13:21 | NUR ---
PATIENT GIVEN 1MG OF IV DILAUDID FOR 5/10 ABD PAIN
--- NOTE | 2022-06-28 14:00 | NUR ---
PATIENT LYING IN BED WITH LIGHTS OUT. STATES HE DOES NOT WANT HELP WHEN HE IS DISCHARGED FROM THE HOSPITAL. PATIENT PLANS TO GO BACK AND LIVE ON THE STREET.
--- NOTE | 2022-06-28 14:40 | NUR ---
PATIENT IS RESTING IN BED, DENIES NEED TO VOID. PAIN IS 5/10.
--- NOTE | 2022-06-28 16:30 | NUR ---
PATIENT GIVEN 1MG OF IV DILAUDID FOR 7/10 ABD PAIN. PATIENT IS RESTING IN BED AND DENIES OTHER NEEDS.
--- NOTE | 2022-06-28 17:42 | NUR ---
PATIENT IS RED AND BLOTCHY ON HIS FACE, ITCHY EVERYWHERE ELSE. 12.5MG OF BENADRYL GIVEN. PATIENT REPORTS HIS PAIN IS 5/10.
--- NOTE | 2022-06-28 19:16 | NUR ---
NEW BAG OF IV FLUID HUNG. PATIENT VOIDED 450ML TO URINAL.
--- NOTE | 2022-06-28 19:33 | NUR ---
REPORT RECEIVED FROM DAY SHIFT RN. PT LYING IN BED ALERT AND ORIENTED. DENIES NEEDS. WHITE BOARD UPDATED. CALL LIGHT IN REACH.
--- NOTE | 2022-06-28 20:45 | NUR ---
EVENING ASSESSMENT COMPLETE. SCHEDULED MEDS ADMIN PER EMAR. PT REPORTS ABD PAIN 12/31. PRN FOR PAIN ADMIN PER ORDER. PT DENIES NAUSEA. BOWEL TONES HYPOACTIVE. ABD SOFT AND MILDY DISTENDED ON THE RIGHT SIDE. PT REMAINS NPO. IVF INFUSING WNL. ORAL SWABS AT BEDSIDE. PT DENIES FURTHER NEEDS AT THIS TIME. CALL LIGHT IN REACH.
--- NOTE | 2022-06-29 00:15 | NUR ---
CALL LIGHT ANSWERED. PT REPORTS ABD PAIN 12/31. PRN FOR PAIN ADMIN PER ORDER. URINAL EMPTIED. NO FURTHER NEEDS.
--- NOTE | 2022-06-29 05:15 | NUR ---
[facility] DOWN TIME PROCEDURE. SEE PAPER CHART.
--- NOTE | 2022-06-29 07:23 | NUR ---
REPORT RECEIVED. PT IN BED. DENIES PAIN AT THIS TIME. FLUIDS INFUSING PER ORDER. DENIES NEEDS. CALL LIGHT IN REACH.
--- NOTE | 2022-06-29 09:00 | NUR ---
ASSESSMENT COMPLETED. PT REPROTS 11/30 PAIN/ DILAUDID ADMINISTERED. PT REFUSED PROTONIX AND LOVENOX. BOWEL TONES HYPOACTIVE. PT DENIES DISTENTION. NO GAS/BM. NO NAUSEA.
--- NOTE | 2022-06-29 09:40 | NUR ---
PT CALLED REPORTING ITCHYNESS. 25MG BENADRYL ADMINISTERED.
--- NOTE | 2022-06-29 10:35 | NUR ---
PATIENT RESTING IN BED WITH EYES CLOSED. WOKE TO VOICE. VITALS CHARTED. WARM BLANKET OFFERED, PATIENT DENIED. NO OTHER NEEDS AT THIS TIME
--- NOTE | 2022-06-29 12:38 | NUR ---
IN FOR ROUNDS AND MEDPASS. PT REPORTINV 12/31 PAIN. DILAUDID ADMINSTERED. SET PT UP FOR SHOWER. DENEIS FURTHER NEEDS.
--- NOTE | 2022-06-29 14:41 | NUR ---
PT REPORTING PAIN 5/10 DILAUDID ADMINWSTERED. PT SET UP FOR SHOWER. IV WRAPPED.
--- NOTE | 2022-06-29 15:35 | NUR ---
PT REQUESTING BENADRYL FOR ITCHING.
--- NOTE | 2022-06-29 17:12 | NUR ---
pt requesting pain medication, for pain 12/31 to abd. given 1 mg iv dilaudid. pt appears comfortable, watching his phone. pt denies other needs at this time.
--- NOTE | 2022-06-29 19:43 | NUR ---
RECEIVED REPORT FROM OFFGOING SHIFT. HOURLY ROUNDING INITIATED.
--- NOTE | 2022-06-29 22:11 | NUR ---
PT RAPHAEL FLORES. RN NOTIFIED. NO FURTHER NEEDS. CALL LIGHT WITHIN REACH
--- NOTE | 2022-06-29 23:57 | NUR ---
HOURLY ROUNDING COMPLETED
--- NOTE | 2022-06-30 01:58 | NUR ---
IV PUMP ALARMING. NEW BAG IV FLUIDS PTOVIDED. NO OTHER NEEDS. CALL LIGHT IN REACH.
--- NOTE | 2022-06-30 06:06 | NUR ---
Pt was calm, cooperative, able to make needs known. Pt slept majority of the night, receiving PRN medication for pain and nausea at approximately 5 and benadryl at approximately 0 with no further complaint of pain or otherwise until after 0. Pt then received scheduled and PRN medication and returned to sleep. Pt continues to complain of itching, reports some hunger but is cognizant of the purpose for being NPO.
--- NOTE | 2022-06-30 07:15 | NUR ---
REPORT RECIEVED FROM MEGAN NORRIS. PER MEGAN THE IV SITE HAS "GONE BAD DOESN'T FLUSH" FLUIDS AND MAG STOPPED. THIS RN WILL GO IN AND RESTART IV.
--- NOTE | 2022-06-30 08:00 | NUR ---
IN ROOM TO RESTART IV, PT COOPERATIVE BUT ASKING ABOUT PAIN MED. INFORMED HIM THAT HIS MED IS NOT DUE FOR UNTIL ALMOST 0900 AND WILL BRING SOME WITH OTHER SCHEDULED MEDICATIONS. PT OK WITH THIS AT THIS TIME.
--- NOTE | 2022-06-30 08:59 | NUR ---
in room to give medications and do assessment. 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 pt also refuses the enoxaparin inj, "i don't need it I haven't been taking it" pt states he just wants to rest, does not want his clear liquid breakfast at this time.
--- NOTE | 2022-06-30 10:11 | NUR ---
DONALD NIKOLAS WAS IN ROOM TO OBTAIN VITALS AND PT IS STATING "COME BACK WHEN MY PAIN MED IS DO" NOT ALLOWING VITALS TO BE TAKEN. PT INFORMED THAT WE HAVE A JOB TO DO IN TAKING CARE OF HIM AND PART OF THIS IS OBTAINING VITALS, ENCOURAGED PT TO BE MORE COOPERATIVE WITH STAFF AND HIS WHOLE ADMISSION ENTAILS MORE THAN JUST RECEIVING PAIN MEDS. PT STATES "OK"
--- NOTE | 2022-06-30 10:57 | NUR ---
IN ROOM TO GIVE PATIENT IV PAIN MED AND VITALS, PT STATES "YOU GUYS DON'T NEED TO WAKE ME UP TO TELL ME YOU'RE GIVING ME MY PAIN MED, I'M TRYING TO SLEEP" PT INFORMED THAT PART OF HIS CARE WE ASK THE PATIENT HIS PAIN LEVEL, ETC. PT STATES HE "DON'T CARE, YOU DON'T HAVE TO COME IN HERE EVERY HOUR I'M TRYING TO SLEEP"
--- NOTE | 2022-06-30 14:56 | NUR ---
IN ROOM TO MEDICATE PT WITH HIS PAIN MED, PT IS PLAYING ON HIS PHONE STILL REPORTING PAIN AROUND "6 OR 7" PT IS ALSO ITCHY, MEDICATED WITH BENADRYL IV FOR ITCHING.
--- NOTE | 2022-06-30 15:59 | NUR ---
AFTER I GOT THE PATIENT'S VITALS I ASKED HIM BETWEEN 1OOO THIS MORNING AND 1400 HOW MANY TIMES DID HE VOID AND HE SAID I DON'T KNOW. NURSE WAS NOTIFIED.
--- NOTE | 2022-06-30 17:01 | NUR ---
IN ROOM TO GIVE PT HIS PAIN MEDICATION, PT WAS ALSO ENCOURAGED TO CHOOSE FROM THE CLEAR LIQUID DIET THINGS HE MAY LIKE TO TRY HE HAS NOT TAKEN IN MUCH TODAY BECAUSE "NOTHING I LIKE" "NOTHING FOR MY CROHN'S"
--- NOTE | 2022-06-30 17:15 | NUR ---
PATIENT'F FAMILY HAS STEPPED AWAY. IN ROOM AND SUCTIONED PT FOR SOME OF HER SECRETIONS, PT'S RR RATE IS ABOUT 38, ADMINISTERED SUBLINGUAL MORPHINE AT THIS TIME.
--- NOTE | 2022-06-30 17:55 | NUR ---
PT IS ADAMANT ABOUT NOT WANTING TO BE "BOTHERED" REGULARLY, PT INFORMED THAT WE ARE GIVING HIM IV PAIN MEDICATIONS AND WE NEED TO ASSESS HIM ND ENSURE HE IS NOT OVERLY SEDATED, ETC.
--- NOTE | 2022-06-30 18:39 | NUR ---
PT HAS BEEN RECEIVING HIS PRN DILAUDID EVERY 2 HOURS, PT WAS NOT VERY COOPERATIVE WITH STAFF WHEN IT WAS TIME TO GET VTALS, CHECKING ON HIM AFTER GETTING IV PAIN MEDS, FOR THE MOST PART DID NOT WANT TO BE BOTHERED WANTED TO SLEEP. PT DID NOT WANT ANY OF HIS BREAKFAST OR LUNCH, HAD PT ORDER HIS CLEAR LIQUID DIET FOR DINNER TO SPCEFIFY THINGS HE MIGHT LIKE THAT HE IS ALLOWED TO HAVE, THIS SEEMED TO WORK WELL FOR THE PT.
--- NOTE | 2022-06-30 18:49 | NUR ---
PT ASKING FOR MORE TO DRINK, GAVE PATIENT SOME HOT WATER, WITH A COUPLE OF OPTIONS FOR TEAS, ALSO MORE [place] SODA. PT UP AND PACING AROUND ROOM. STATES HE IS "VERY FRUSTRAED" ABOUT BEING HERE. STATES HE IS "SORRY FOR BEING A PACO" PT INFORMED THAT IT IS OK TO EXPRESS FRUSTRATION.
--- NOTE | 2022-06-30 19:30 | NUR ---
received report from offgoing shift. Hourly ronding initiated
--- NOTE | 2022-06-30 21:05 | NUR ---
PT CALLED FOR TEA AND SODA, PROVIDED, URINAL EMPTIED
--- NOTE | 2022-07-01 04:59 | NUR ---
Medications provided, hourly rounding
--- NOTE | 2022-07-01 07:43 | NUR ---
REPORT RECEIVED FROM JOHN NORRIS. PT IN BED JUST WAKING UP WHEN STAFF WALK IN ROOM. REPORTS PAIN 12/31. DILAUDID ADMINSTERED. HOT TEA PROVIDED. PT REPROTS TOLERATING CLEARS WELL. PT REQUESTING TO STOP NICOTINE. PT REFUSING PROTONIX AND LOVENOX. INDEPENDENT IN ROOM. DENIES FURTHER NEEDS.
--- NOTE | 2022-07-01 11:20 | NUR ---
PT CALLS TO NURSING STATION REPORTING NAUSEA RELATEDD TO NOT EATING SOON ENOUGH. ZOFRAN ADMINISTERED ALONG WITH BENTYL AND BENADRLY FOR ITCHING PER PT REQUEST.
--- NOTE | 2022-07-01 12:02 | NUR ---
CONNECTED WITH PT HE WAS AMBULATING IN BRAN. WALKED RATHER BRISKLY WITH IV POLE. SAID HE WANTS TO LEAVE...."I KNOW THE HOSPITAL NEEDS THE BED SPACE". GAVE ENCOURAGEMENT AND BLESSING, WILL FOLLOW
[2022-07-01] MEDS ORDERED: DICYCLOMINE HCL20 MG PO (12:05)
--- NOTE | 2022-07-01 12:11 | NUR ---
PT OUT AMBULATING BRAN.
[2022-07-01] MEDS ORDERED: PREDNISONE20 MG PO (12:13)
--- NOTE | 2022-07-01 12:23 | NUR ---
PT VERY ANXIOUS TO LEAVE REPORTING HIS RIDE WILL LEAVE HIM IF HES NOT THERE FAST. IV REMOVED, CATH INTACT. PT REFUSSED VITALS, AND DID NOT WANT DISCHARGE INSTRUCTIONS. PT TOOK PACKET AND SAYS HE WILL READ IT. ENCOURAGED PT TO MAKE FOLLOW UP WITH PCP. PT WALKED SELF OUT.
--- NOTE | 2022-07-02 07:58 | DS ---
[facility] [address], [place] [address] Signed ADMISSION DATE: 06/28/2022 DISCHARGE DATE: 07/01/2022 FINAL DIAGNOSIS: Ofhsy-go-yqxpuet Crohn disease. PROCEDURE: CT scan of abdomen and pelvis. HISTORY: Faheem is a 42-year-old gentleman, who said he developed symptoms of Crohn disease when he was age 10. He was formally diagnosed at age 16 [address] Ahmet Myers, his primary care provider. Dr. Myers is now retired. He also suffers with fibromyalgia, anxiety, and depression. He told me his ex- and three children live in [place], [place]. He has returned back to the [place], [place] area to his friends. Unfortunately, he remains homeless. He said he has been on various medications for the Crohn disease including Remicade and Humira. He is not sure any of them helped. He has been to multiple hospitals including our [facility]. He has gone through 11 days of significant abdominal pain and finally came to emergency room for evaluation. 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 I was asked to admit him as a general surgeon on-call. HOSPITAL COURSE: Faheem was admitted as above and started on IV Solu-Medrol at 40 mg IV t.i.d. He responded nicely to that. He was requesting some and seems to feel that helps. His tox screen came back positive for the methamphetamines and marijuana. He is now tolerating clear liquid diet. Apparently, he is feeling better. He has been ambulating in the hallways at a rapid pace and his hands and feet have been twitching constantly. He said he has a friend who is going to take him home by 2 o'clock this afternoon. He was going to leave AMA regardless. DISCHARGE PLANS AND MEDICATIONS: Faheem is going to be discharged to home with a prescription for Bentyl 20 mg 1-2 tablets p.o. q.6 hours p.r.n. for crampy abdominal pain, dispense 20 tablets with no refills. He also requested a prednisone taper. We will give him a short taper with prednisone 20 mg tablets three tablets once a day for one week, then two tablets once a day for one week, then one tablet once a day for one week and then discontinue. He is welcome to follow up with his primary care provider, Naomie Griffiths, in physician's certified nursing assistant instructor in [place], [place]; however, he told me it is too far for him to go. Again, he has declined help from our case management and declined our help finding a primary Electronically Signed By: BLANCA AGUILERA MD 07/02/22 0758 PATIENT NAME: FAHEEM PRESTON DISCHARGE SUMMARY DATE OF : 76 REPORT #: [id number] PHYSICIAN: BLANCA AGUILERA MD PCP: NAOMIE GRIFFITHS REPORT IS CONFIDENTIAL AND NOT TO BE RELEASED WITHOUT AUTHORIZATION [facility] [address] [place] [id number] Signed care provider here in [place], [place]. He will take his regular diet as usual. He can follow up in my office as needed. He has expressed understanding and agrees with the above plan. Blanca Aguilera MD ALB/MODL /[id number] cc: Patient Chart BRYN Davidson MD Copies: BLANCA AGUILERA MD ~ Electronically Signed By: BLANCA AGUILERA MD 07/02/22 0758 PATIENT NAME: FAHEEM PRESTON DISCHARGE SUMMARY DATE OF : 76 REPORT #: [id number] PHYSICIAN: BLANCA AGUILERA MD PCP: NAOMIE GRIFFITHS REPORT IS CONFIDENTIAL AND NOT TO BE RELEASED WITHOUT AUTHORIZATION
== END 2022-07-01 12:23 | disposition home or self-care (01) | DRG 387 ==
LOC: ED 15:57 → MS 06-28 01:55
PROVIDERS: ADMIT Colon & Rectal Surgery; ATTEND Colon & Rectal Surgery
DX: K50.90 Crohn's disease, unspecified, without complications (principal); M79.7 Fibromyalgia; F41.9 Anxiety disorder, unspecified; F32.A Depression, unspecified; Z20.822 Contact with and (suspected) exposure to COVID-19; E83.42 Hypomagnesemia; F12.90 Cannabis use, unspecified, uncomplicated; F15.90 Other stimulant use, unspecified, uncomplicated; F17.210 Nicotine dependence, cigarettes, uncomplicated; Z98.890 Other specified postprocedural states; Z88.6 Allergy status to analgesic agent; Z88.8 Allergy status to other drugs, medicaments and biological substances
CPT/HCPCS: 36415; 74177; 80048; 80053; 81003; 83690; 83735; 84100; 85025; 96375; 96376; 99285-25; C9113; J0696; J1170; J1200; J1650; J2405; J2920; J3475; J7030; J7121; Q9967; U0003

== ENCOUNTER 2022-08-06 10:21 | Emergency (ER) | payer OTHER ==
[~2022-08-06] VITALS: Ht 180.3 cm; Wt 63.6 kg
--- OUTSIDE RECORDS SUMMARY | 2022-08-06 10:58 | XMS ---
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 - Patient with suicidal and/or homicidal ideations eloped. - Patient eloped with IV in place. Details: Patient LWBS. CRITERIA MET - Group Notification CARE PROVIDERS EMELYN GALO Physician Film Splicer [facility] PHONE: [phone] Kian has no Care Guidelines for this patient. EMani VISIT COUNT (12 MO.) [address] [place] [address] TOTAL 7 NOTE: Visits indicate total known visits. 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 (current) use of systemic steroids - Unspecified abdominal pain - Allergy status to narcotic agent - Allergy status to other drugs, medicaments and biological substances - Nicotine dependence, unspecified, uncomplicated 11/13/2021 23:11 [facility] TYPE: Emergency COMPLAINT: - VOMITING, BODY ACHES DIAGNOSES: - Crohn's disease, unspecified, without complications - Other stimulant abuse, uncomplicated - Allergy status to narcotic agent - Other manager terminal (current) drug therapy - Allergy status to other drugs, medicaments and biological substances - Nausea with vomiting, unspecified - Nicotine dependence, unspecified, uncomplicated 09/30/2021 04:36 [facility] TYPE: Emergency COMPLAINT: - ABD PAIN DIAGNOSES: - Crohn's disease, unspecified, without complications - Other senior care (current) drug therapy - Allergy status to other drugs, medicaments and biological substances - Nicotine dependence, unspecified, uncomplicated - Allergy status to narcotic agent - Unspecified abdominal pain INPATIENT VISIT TRACKING (12 MO.) 06/28/2022 01:55 [facility] TYPE: Medical Surgical COMPLAINT: - CROHN'S DISEASE FLARE, ABDOMINAL PAIN DIAGNOSES: - Allergy status to other drugs, medicaments and biological substances - Allergy status to analgesic agent - Other stimulant use, unspecified, uncomplicated - Depression, unspecified - Fibromyalgia - Allergy status to other drugs, medicaments and biological substances - Allergy status to analgesic agent - Other specified postprocedural states - Cannabis use, unspecified, uncomplicated - Other specified postprocedural states - Crohn's disease, unspecified, without complications - Hypomagnesemia - Nicotine dependence, cigarettes, uncomplicated - Contact with and (suspected) exposure to COVID-19 - Anxiety disorder, unspecified - Contact with and (suspected) exposure to COVID-19 - Other stimulant use, unspecified, uncomplicated - Fibromyalgia - Cannabis use, unspecified, uncomplicated - Depression, unspecified - Anxiety disorder, unspecified - Hypomagnesemia - Nicotine dependence, cigarettes, uncomplicated 04/21/2022 14:03 [facility] [place] TYPE: Medical Surgical COMPLAINT: - SBO AND CROHNS DISEASE DIAGNOSES: - Homelessness unspecified - Contact with and (suspected) exposure to COVID-19 - Unspecified intestinal obstruction, unspecified as to partial versus complete obstruction - Crohn's disease of small intestine with intestinal obstruction [email or web address]
[2022-08-06] MEDS ORDERED: HYDROCODON-ACE1 EA10 PO (16:08)
[2022-08-06] MEDS ORDERED: ONDANSETRON ODT4 MG PO (16:08)
[2022-08-06] MEDS ORDERED: DICYCLOMINE HCL20 MG PO (16:08)
[2022-08-06] MEDS ORDERED: DECADRON4 MG PO (16:14)
== END 2022-08-06 11:27 | disposition other institution, planned readmission (95) ==
LOC: ED 10:21
DX: K50.90 Crohn's disease, unspecified, without complications (principal); F17.200 Nicotine dependence, unspecified, uncomplicated; Z88.5 Allergy status to narcotic agent; Z88.8 Allergy status to other drugs, medicaments and biological substances
CPT/HCPCS: 80053; 83690; 85025; 99283

== ENCOUNTER 2022-08-06 11:45 | Emergency (ER) | payer OTHER ==
[~2022-08-06] VITALS: Ht 180.3 cm; Wt 63.6 kg
--- OUTSIDE RECORDS SUMMARY | 2022-08-06 11:47 | XMS ---
PreManage Notification: JASON PRESTON Security Block Breaker Events 1 event(s) in the past 18 months Most recent security events: Elopement at [facility] 06/15/2022 13:02 - Patient eloped before treatment completed. - Patient with suicidal and/or homicidal ideations eloped. - Patient eloped with IV in place. Details: Patient LWBS. CRITERIA MET - Group Notification - [facility] - 2 Visits in 30 Days - 6 ED Visits in 6 Months CARE PROVIDERS EMELYN GALO Physician Flight Attendant Inflight Services [facility] PHONE: [phone] Kian has no Care Guidelines for this patient. Nina VISIT COUNT (12 MO.) [address] [place] [address] TOTAL 8 NOTE: Visits indicate total known visits. 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 - Unspecified abdominal pain - Allergy status to narcotic agent 11/13/2021 23:11 [facility] TYPE: Emergency COMPLAINT: - VOMITING, BODY ACHES DIAGNOSES: - Nausea with vomiting, unspecified - Nicotine dependence, unspecified, uncomplicated - Crohn's disease, unspecified, without complications - Other stimulant abuse, uncomplicated - Allergy status to narcotic agent - Other senior care (current) drug therapy - Allergy status to other drugs, medicaments and biological substances 09/30/2021 04:36 [facility] TYPE: Emergency COMPLAINT: - ABD PAIN DIAGNOSES: - Allergy status to narcotic agent - Unspecified abdominal pain - Crohn's disease, unspecified, without complications - Other senior care (current) drug therapy - Allergy status to other drugs, medicaments and biological substances - Nicotine dependence, unspecified, uncomplicated INPATIENT VISIT TRACKING (12 MO.) 06/28/2022 01:55 [facility] TYPE: Medical Surgical COMPLAINT: - CROHN'S DISEASE FLARE, ABDOMINAL PAIN DIAGNOSES: - Fibromyalgia - Cannabis use, unspecified, uncomplicated - Depression, unspecified - Anxiety disorder, unspecified - Hypomagnesemia - Nicotine dependence, cigarettes, uncomplicated - Allergy [...] COVID-19 - Other stimulant use, unspecified, uncomplicated 04/21/2022 14:03 [facility] TYPE: Medical Surgical COMPLAINT: - SBO AND CROHNS DISEASE DIAGNOSES: - Crohn's disease of small intestine with intestinal obstruction - Homelessness unspecified - Contact with and (suspected) exposure to COVID-19 - Unspecified intestinal obstruction, unspecified as to partial versus complete obstruction [email or web address]
[2022-08-06] MEDS ORDERED: ONDANSETRON ODT4 MG PO (16:08)
[2022-08-06] MEDS ORDERED: DICYCLOMINE HCL20 MG PO (16:08)
[2022-08-06] MEDS ORDERED: HYDROCODON-ACE1 EA10 PO (16:08)
[2022-08-06] MEDS ORDERED: DECADRON4 MG PO (16:14)
== END 2022-08-06 17:40 | disposition home or self-care (01) ==
LOC: ED 11:45
DX: K50.90 Crohn's disease, unspecified, without complications (principal); F15.10 Other stimulant abuse, uncomplicated; F17.200 Nicotine dependence, unspecified, uncomplicated; Z88.5 Allergy status to narcotic agent; Z88.8 Allergy status to other drugs, medicaments and biological substances
CPT/HCPCS: 36415; 74022; 80053; 81003; 83690; 85025; 96374; 96375; 99284-25; J1100; J1170; J1200; J1790

== ENCOUNTER 2022-08-20 23:12 | Emergency (ER) | payer OTHER ==
[~2022-08-20] VITALS: Ht 180.3 cm; Wt 69.4 kg
[~2022-08-20 23:12] MED LIST changes: +DECADRON4 MG PO
--- OUTSIDE RECORDS SUMMARY | 2022-08-20 23:14 | XMS ---
PreManage Notification: JASON PRESTON Security Investigative Assistant Events 2 event(s) in the past 18 months Most recent security events: Elopement at [facility] 08/06/2022 11:45 - Patient eloped before treatment completed. - Patient with suicidal and/or homicidal ideations eloped. - Patient eloped with IV in place. Details: Patient left AMA. Elopement at [facility] 06/15/2022 13:02 - Patient eloped before treatment completed. - Patient with suicidal and/or homicidal ideations eloped. - Patient eloped with IV in place. Details: Patient LWBS. CRITERIA MET - 6 ED Visits in 6 Months - [facility] - 2 Visits in 30 Days - Group Notification CARE PROVIDERS EMELYN GALO Physician Precise Winder [facility] PHONE: [phone] Kian has no Care Guidelines for this patient. E.D. VISIT COUNT (12 MO.) 9 [facility] TOTAL 9 NOTE: Visits indicate total known visits. ED/UCC VISIT TRACKING (12 MO.) 08/20/2022 23:[address] [facility] [place] TYPE: Emergency COMPLAINT: - ABD PAIN 08/06/2022 11:[address] [facility] TYPE: Emergency COMPLAINT: - ABDOMINAL PAIN DIAGNOSES: - Allergy status to narcotic agent - Other stimulant abuse, uncomplicated - Allergy status to other drugs, medicaments and biological substances - Lower abdominal pain, unspecified - Nicotine dependence, unspecified, uncomplicated - Crohn's disease, unspecified, without complications 08/06/2022 10:21 [facility] TYPE: Emergency COMPLAINT: - ABDOMINAL PAIN DIAGNOSES: - Lower abdominal pain, unspecified - Allergy status to narcotic agent - Allergy status to other drugs, medicaments and biological substances - Nicotine dependence, unspecified, uncomplicated - Crohn's disease, unspecified, without complications 06/27/2022 15:58 [facility] TYPE: Emergency COMPLAINT: - ABD PAIN 06/15/2022 13:02 [facility] TYPE: Emergency COMPLAINT: - ABD PAIN 04/21/2022 10:06 [facility] TYPE: Emergency COMPLAINT: - ABD PAIN 02/17/2022 20:17 [facility] TYPE: Emergency COMPLAINT: - ABD PAIN DIAGNOSES: - Nicotine dependence, unspecified, uncomplicated - Crohn's disease of small intestine with other complication - Other intermediate (current) drug therapy - half-way (current) use of systemic steroids - Unspecified abdominal pain - Allergy status to narcotic agent - Allergy status to other drugs, medicaments and biological substances 11/13/2021 23:11 [facility] TYPE: Emergency COMPLAINT: - VOMITING, BODY ACHES DIAGNOSES: - Nicotine dependence, unspecified, uncomplicated - Crohn's disease, unspecified, without complications - Other stimulant abuse, uncomplicated - Allergy status to narcotic agent - 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 - Allergy status to other drugs, medicaments and biological substances - Nausea with vomiting, unspecified 09/30/2021 04:36 [facility] TYPE: Emergency COMPLAINT: - ABD PAIN DIAGNOSES: - Unspecified abdominal pain - Crohn's disease, unspecified, without complications - Other intermediate (current) drug therapy - Allergy status to other drugs, medicaments and biological substances - Nicotine dependence, unspecified, uncomplicated - Allergy status to narcotic agent INPATIENT VISIT TRACKING (12 MO.) 06/28/2022 01:55 [facility] TYPE: Medical Surgical COMPLAINT: - CROHN'S DISEASE FLARE, ABDOMINAL PAIN DIAGNOSES: - Anxiety disorder, unspecified - Hypomagnesemia - [...] Cannabis use, unspecified, uncomplicated - Depression, unspecified 04/21/2022 14:03 [facility] TYPE: Medical Surgical COMPLAINT: - SBO AND CROHNS DISEASE DIAGNOSES: - Homelessness unspecified - Contact with and (suspected) exposure to COVID-19 - Unspecified intestinal obstruction, unspecified as to partial versus complete obstruction - Crohn's disease of small intestine with intestinal obstruction [email or web address]
[2022-08-21] MEDS ORDERED: ONDANSETRON ODT4 MG PO (01:40)
[2022-08-21] MEDS ORDERED: DICYCLOMINE HCL20 MG PO (01:40)
[2022-08-21] MEDS ORDERED: PREDNISONE20 MG PO (01:40)
== END 2022-08-21 02:08 | disposition home or self-care (01) ==
LOC: ED 23:12
DX: K50.90 Crohn's disease, unspecified, without complications (principal); M79.7 Fibromyalgia; F17.200 Nicotine dependence, unspecified, uncomplicated; Z88.5 Allergy status to narcotic agent; Z88.8 Allergy status to other drugs, medicaments and biological substances; Z79.899 Other long term (current) drug therapy
CPT/HCPCS: 36415; 74022; 80053; 81003; 83690; 85025; 96361; 96374; 96375; 99284-25; J1100; J1170; J1200; J1790; J7121

== ENCOUNTER 2022-12-10 16:48 | Emergency (ER) | payer OTHER ==
[~2022-12-10] VITALS: Ht 180.3 cm; Wt 65.0 kg
[~2022-12-10 16:48] MED LIST changes: +ANUSOL-HC25 MG PR; +MESALAMINE DR400 MG PO; +TRAMADOL HCL50 MG PO
--- OUTSIDE RECORDS SUMMARY | 2022-12-10 16:50 | XMS ---
PreManage Notification: JASON PRESTON Security Public Health Dentist Events 2 event(s) in the past 18 months Most recent security events: Elopement at [facility] 08/06/2022 11:45 - Patient eloped before treatment completed. - Patient with suicidal and/or homicidal ideations eloped. - Patient eloped with IV in place. Details: Patient left AMA. Elopement at [facility] 06/15/2022 13:02 - Patient eloped before treatment completed. - Patient with suicidal and/or homicidal ideations eloped. - Patient eloped with IV in place. Details: Patient LWBS. CRITERIA MET - 6 ED Visits in 6 Months - Group Notification - [facility] - 2 Visits in 30 Days CARE PROVIDERS -Navin- Dentist: Departmental Shipping Clerk [facility] PHONE: [phone] EMELYN GALO Physician Gas Stove Servicer Helper [facility] PHONE: [phone] Kian has no Care Guidelines for this patient. E.D. VISIT COUNT (12 MO.) [address] [facility] TOTAL 9 NOTE: Visits indicate total known visits. ED/UCC VISIT TRACKING (12 MO.) 12/10/2022 16:48 [facility] TYPE: Emergency COMPLAINT: - ABD PAIN 12/05/2022 11:22 [facility] TYPE: Emergency COMPLAINT: - ABD PAIN DIAGNOSES: - Allergy status to narcotic agent - Crohn's disease, unspecified, without complications - Nicotine dependence, unspecified, uncomplicated - Other fdc (current) drug therapy - Unspecified abdominal pain 08/20/2022 23:[address] [facility] [place] TYPE: Emergency COMPLAINT: - ABD PAIN DIAGNOSES: - Allergy status to narcotic agent - Allergy status to other drugs, medicaments and biological substances - Crohn's disease, unspecified, without complications - Fibromyalgia - Nicotine dependence, unspecified, uncomplicated - Other fdc (current) drug therapy - Unspecified abdominal pain 08/06/2022 11:[address] [facility] [place] TYPE: Emergency COMPLAINT: - ABDOMINAL PAIN DIAGNOSES: - Allergy status to narcotic agent - Allergy status to other drugs, medicaments and biological substances - Crohn's disease, unspecified, without complications - Lower abdominal pain, unspecified - Nicotine dependence, unspecified, uncomplicated - Other stimulant abuse, uncomplicated 08/06/2022 10:[address] [facility] [place] TYPE: Emergency COMPLAINT: - ABDOMINAL PAIN DIAGNOSES: - Allergy status to narcotic agent - Allergy status to other drugs, medicaments and biological substances - Crohn's disease, unspecified, without complications - Lower abdominal pain, unspecified - Nicotine dependence, unspecified, uncomplicated 06/27/2022 15:58 [facility] TYPE: Emergency COMPLAINT: - ABD PAIN 06/15/2022 13:02 [facility] TYPE: Emergency COMPLAINT: - ABD PAIN 04/21/2022 10:06 [facility] TYPE: Emergency COMPLAINT: - ABD PAIN 02/17/2022 20:17 [facility] TYPE: Emergency COMPLAINT: - ABD PAIN DIAGNOSES: - Allergy status to narcotic agent - Allergy status to other drugs, medicaments and biological substances - Crohn's disease of small intestine with other complication - senior living (current) use of systemic steroids - Nicotine dependence, unspecified, uncomplicated - Other fdc (current) drug therapy - Unspecified abdominal pain INPATIENT VISIT TRACKING (12 MO.) 06/28/2022 01:[address] [facility] [place] TYPE: Medical Surgical COMPLAINT: - CROHN'S DISEASE FLARE, ABDOMINAL PAIN DIAGNOSES: - Allergy status to analgesic agent - Allergy status to analgesic agent - Allergy status to other drugs, medicaments and biological substances - Allergy status to other drugs, medicaments and biological substances - Anxiety disorder, unspecified - Anxiety disorder, unspecified - Cannabis use, unspecified, uncomplicated - Cannabis use, unspecified, uncomplicated - Contact with and (suspected) exposure to COVID-19 - Contact with and (suspected) exposure to COVID-19 - Crohn's disease, unspecified, without complications - Depression, unspecified - Depression, unspecified - Fibromyalgia - Fibromyalgia - Hypomagnesemia - Hypomagnesemia - Nicotine dependence, cigarettes, uncomplicated - Nicotine dependence, cigarettes, uncomplicated - Other specified postprocedural states - Other specified postprocedural states - Other stimulant use, unspecified, uncomplicated - Other stimulant use, unspecified, uncomplicated 04/21/2022 14:03 [facility] TYPE: Medical Surgical COMPLAINT: - SBO AND CROHNS DISEASE DIAGNOSES: - Contact with and (suspected) exposure to COVID-19 - Crohn's disease of small intestine with intestinal obstruction - Homelessness unspecified - Unspecified intestinal obstruction, unspecified as to partial versus complete obstruction [email or web address]
[2022-12-10] MEDS ORDERED: PREDNISONE10 MG PO (17:46)
[2022-12-10] MEDS ORDERED: DICYCLOMINE HCL20 MG PO (17:46)
[2022-12-10 18:03] VITALS: BP 117/96
== END 2022-12-10 18:04 | disposition home or self-care (01) ==
LOC: ED 16:48
DX: K50.10 Crohn's disease of large intestine without complications (principal); F17.200 Nicotine dependence, unspecified, uncomplicated; Z88.5 Allergy status to narcotic agent; Z88.8 Allergy status to other drugs, medicaments and biological substances; Z79.899 Other long term (current) drug therapy; Z79.52 Long term (current) use of systemic steroids
CPT/HCPCS: 96372; 99283; J1170; J7512

== ENCOUNTER 2023-01-28 18:19 | Emergency (ER) | payer OTHER ==
[~2023-01-28] VITALS: Ht 180.3 cm; Wt 65.1 kg
--- OUTSIDE RECORDS SUMMARY | ~2023-01-28 | XMS | Continuity of Care Document ---
Demographics + + + | Address | [address] | | | [place] [address] | + + + | Preferred Language | Unknown | + + + | Marital Status | Never | + + + | Pentecostal Affiliation | Unknown | + + + | Race | White | + + + | Ethnic Group | Unknown | + + + Author + + + | Author | [facility] | + + + | Organization | [facility] | + + + | Address | [address] | | | [place] [address] | + + + | Phone | | + + + Care Team Providers + + + + | Care Parquetry Layer Name | Role | Phone | + + + + Unavailable | Unavailable | + + + + Allergies No information. Encounters No information. Functional Status No information. Immunizations No information. Medications No information. Problems + + + + | date | description | facility | + + + + | 2022-12-10 16:48 | NICOTINE DEPENDENCE, | [facility] | | | UNSPECIFIED, UNCOMPLICATED | | + + + + | 2022-12-10 16:48 | CROHN'S DISEASE OF LARGE | [facility] | | | INTESTINE WITHOUT COMPLIC | | + + + + | 2022-12-10 16:48 | UNSPECIFIED ABDOMINAL PAIN | [facility] | | | | | + + + + | 2022-12-10 16:48 | USP (CURRENT) USE OF | [facility] | | | SYSTEMIC STEROIDS | | + + + + | 2022-12-10 16:48 | OTHER USP (CURRENT) | [facility] | | | DRUG THERAPY | | + + + + | 2022-12-10 16:48 | ALLERGY STATUS TO NARCOTIC | [facility] | | | AGENT STATUS | | + + + + | 2022-12-10 16:48 | ALLERGY STATUS TO OTH | [facility] | | | DRUG/MEDS/BIOL SUBST STATUS | | | | | | + + + + Procedures No information. Results/Labs No information. Social History No information. Vital Signs No information."
--- OUTSIDE RECORDS SUMMARY | ~2023-01-28 | XMS | Continuity of Care Document ---
Demographics + + + | Address | [address] | | | [place] [address] | + + + | Preferred Language | Unknown | + + + | Marital Status | Never | + + + | Congregational Affiliation | Unknown | + + + | Race | White | + + + | Ethnic Group | Unknown | + + + Author + + + | Author | [facility] | + + + | Organization | [facility] | + + + | Address | [address] | | | [place] [address] | + + + | Phone | | + + + Care Team Providers + + + + | Care Cleaning Attendant Name | Role | Phone | + [...] + + + | 2022-12-10 16:48 | DETENTION (CURRENT) USE OF | [facility] | | | SYSTEMIC STEROIDS | | + + + + | 2022-12-10 16:48 | OTHER DETENTION (CURRENT) | [facility] | | | DRUG [...]
--- OUTSIDE RECORDS SUMMARY | 2023-01-28 18:22 | XMS ---
PreManage Notification: JASON PRESTON Security Shotgun Shell Assembly Machine Adjuster Events 2 event(s) in the past 18 months Most recent security events: Elopement at [facility] 08/06/2022 11:45 - Patient eloped before treatment completed. - Patient with suicidal and/or homicidal ideations eloped. - Patient eloped with IV in place. Details: Patient left AMA. Elopement at [facility] 06/15/2022 13:02 - Patient eloped before treatment completed. - Patient with suicidal and/or homicidal ideations eloped. - Patient eloped with IV in place. Details: Patient LWBS. CRITERIA MET - 6 ED Visits in 6 Months - Group Notification CARE PROVIDERS -Navin- Dentist: Food And Nutrition Services Supervisor [facility] PHONE: [phone] EMELYN GALO Physician Filter Tank Operator [facility] PHONE: [phone] Kian has no Care Guidelines for this patient. E.D. VISIT COUNT (12 MO.) [address] [facility] TOTAL 10 NOTE: Visits indicate total known visits. ED/UCC VISIT TRACKING (12 MO.) 01/28/2023 18:20 [facility] TYPE: Emergency COMPLAINT: - ABD PAIN 12/10/2022 16:48 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 - Nicotine dependence, unspecified, uncomplicated - Other vermin exterminator (current) drug therapy - Unspecified abdominal pain 12/05/2022 11:22 [facility] TYPE: Emergency COMPLAINT: - ABD PAIN DIAGNOSES: - Allergy status to narcotic agent - Crohn's disease, unspecified, without complications - Nicotine dependence, unspecified, uncomplicated - Other senior living (current) drug therapy - Unspecified abdominal pain 08/20/2022 23:13 [facility] TYPE: Emergency COMPLAINT: - ABD PAIN DIAGNOSES: - Allergy status to narcotic agent - Allergy status to other drugs, medicaments and biological substances - Crohn's disease, unspecified, without complications - Fibromyalgia - Nicotine dependence, unspecified, uncomplicated - Other senior living (current) drug therapy - Unspecified abdominal pain 08/06/2022 11:45 [facility] TYPE: Emergency COMPLAINT: - ABDOMINAL PAIN DIAGNOSES: - Allergy status to narcotic agent - Allergy status to other drugs, medicaments and biological substances - Crohn's disease, unspecified, without complications - Lower abdominal pain, unspecified - Nicotine dependence, unspecified, uncomplicated - Other stimulant abuse, uncomplicated 08/06/2022 10:21 [facility] TYPE: Emergency [...] of small intestine with other complication - [facility] (current) use of systemic steroids - Nicotine dependence, unspecified, uncomplicated - Other senior living (current) drug therapy - Unspecified abdominal pain [...] unspecified as to partial versus complete obstruction [email or web address]
[2023-01-28 20:20] VITALS: BP 121/76
== END 2023-01-28 20:20 | disposition home or self-care (01) ==
LOC: ED 18:19
DX: K50.90 Crohn's disease, unspecified, without complications (principal); F17.200 Nicotine dependence, unspecified, uncomplicated; Z88.5 Allergy status to narcotic agent; Z79.899 Other long term (current) drug therapy
CPT/HCPCS: 36415; 80053; 81003; 83690; 85025; 96374; 96375; 96376; 99284 25; A9270; J1170; J2405; J2930; J7030

== ENCOUNTER 2023-06-13 15:40 | Emergency (ER) | payer OTHER ==
[~2023-06-13] VITALS: Ht 180.3 cm; Wt 69.6 kg
--- OUTSIDE RECORDS SUMMARY | 2023-06-13 15:42 | XMS ---
PreManage Notification: JASON PRESTON Security [employer] Engineer Events 2 event(s) in the past 18 months Most recent security events: Elopement at [facility] 08/06/2022 11:45 - Patient eloped before treatment completed. - Patient with suicidal and/or homicidal ideations eloped. - Patient eloped with IV in place. Details: Patient left AMA. Elopement at [facility] 06/15/2022 13:02 - Patient eloped before treatment completed. - Patient with suicidal and/or homicidal ideations eloped. - Patient eloped with IV in place. Details: Patient LWBS. CRITERIA MET - Group Notification CARE PROVIDERS -Navin- Dentist: Opening Machine Cleaner [facility], [facility] PHONE: [phone] EMELYN GALO Physician Controls Design Engineer [facility] PHONE: [phone] Kian has no Care Guidelines for this patient. E.D. VISIT COUNT (12 MO.) 9 CATHY Glaser (Ravi ) TOTAL 12 NOTE: Visits indicate total known visits. ED/UCC VISIT TRACKING (12 MO.) 06/13/2023 15:40 CATHY Townsend TYPE: Emergency COMPLAINT: - ABD PAIN 05/04/2023 17:16 [facility]im [facility] [place] ([facility]) TYPE: Emergency DIAGNOSES: - Crohn's disease, unspecified, with unspecified complications - emesis 04/16/2023 17:16 Nasim Gorgealex BarryOmi [facility] [place] ([facility]) TYPE: Emergency DIAGNOSES: - Crohn's disease of small intestine with unspecified complications - Diarrhea, unspecified - Nausea with vomiting, unspecified - Emesis - Vomiting 04/08/2023 18:06 Nasim Ronalex BarryOmi [facility] [place] ([facility]) TYPE: Emergency DIAGNOSES: - Crohn's disease of large intestine without complications - Abdominal Pain 01/28/2023 18:20 CATHY [facility] [place] TYPE: Emergency COMPLAINT: - ABD PAIN DIAGNOSES: - Allergy status to narcotic agent - Crohn's disease, unspecified, without complications - Lower abdominal pain, unspecified - Nicotine dependence, unspecified, uncomplicated - Other skilled nursing (current) drug therapy 12/10/2022 16:48 CATHY [facility]olson [place] TYPE: Emergency COMPLAINT: - ABD PAIN DIAGNOSES: - Allergy status to narcotic agent - Allergy status to other drugs, medicaments and biological substances - Crohn's disease of large intestine without complications - 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 [place] TYPE: Emergency COMPLAINT: - ABD PAIN DIAGNOSES: - Allergy status to narcotic agent - Crohn's disease, unspecified, without complications - Nicotine dependence, unspecified, uncomplicated - Other longwall foreman (current) drug therapy - Unspecified abdominal pain 08/20/2022 23:[address] [facility] [place] TYPE: Emergency COMPLAINT: - ABD PAIN DIAGNOSES: - Allergy status to narcotic agent - Allergy status to other drugs, medicaments and biological substances - Crohn's disease, unspecified, without complications - Fibromyalgia - Nicotine dependence, unspecified, uncomplicated - Other skilled nursing (current) drug therapy - Unspecified abdominal pain [...] OR TYPE: Emergency COMPLAINT: - ABD PAIN INPATIENT VISIT TRACKING (12 MO.) 06/28/2022 01:55 [...] uncomplicated - Other stimulant use, unspecified, uncomplicated [email or web address]
[2023-06-13 16:22] LABS: BASOPHILS 1.4 % (0-2); EOSINOPHILS 1.2 % (0-6); HEMATOCRIT 41.9 % (35.0-50.0); LYMPHOCYTES 13.9 % (24-44); MCH 30.2 (27-36); MCHC 33.4 g/dl (30-36); MCV 90.3 fl (81-99); MONOCYTES 6.3 % (0-12); NEUTROPHILS 77.2 % (39-80); PLATELET COUNT 289 K/uL (140-440); RBC 4.65 M/ul (4.3-5.7); RDW 14.2 (10.5-15.0)
[2023-06-13 16:37] LABS: ALBUMIN 3.5 g/dL (3.4-5.0); ANION GAP 12.6 (7-21); BILIRUBIN, TOTAL 0.5 ng/dL (0.2-1.0); BUN/CREATININE RATIO 9.3 (6.0-28.6); CALCIUM 8.9 mg/dL (8.5-10.1); CREATININE, SERUM 0.86 mg/dL (0.70-1.30); POTASSIUM 3.6 mmol/L (3.5-5.1)
[2023-06-13 16:56] LABS: BILIRUBIN, URINE NEGATIVE (negative); BLOOD/HGB, URINE NEGATIVE (Negative); KETONE, URINE NEGATIVE (Negative); LEUK ESTERASE, URINE NEGATIVE (negative); NITRITE, URINE NEGATIVE (negative)
[2023-06-13] MEDS ORDERED: ONDANSETRON ODT4 MG PO (17:43)
[2023-06-13] MEDS ORDERED: HYDROMORPHONE HC2 MG PO (17:43)
[2023-06-13] MEDS ORDERED: PREDNISONE10 M1 PO (17:43)
[2023-06-13] MEDS ORDERED: DICYCLOMINE HCL20 MG PO ×2 (18:06→18:39)
[2023-06-13 18:42] VITALS: BP 132/94
== END 2023-06-13 18:42 | disposition home or self-care (01) ==
LOC: ED 15:40
PROVIDERS: Emergency Medicine
DX: K50.90 Crohn's disease, unspecified, without complications (principal); F17.200 Nicotine dependence, unspecified, uncomplicated; Z90.49 Acquired absence of other specified parts of digestive tract; Z88.5 Allergy status to narcotic agent; Z79.899 Other long term (current) drug therapy
CPT/HCPCS: 36415; 80053; 81003; 83690; 85025; J1170; J2405; J2930; J7030